=== PATIENT | male | born 1975 | race Caucasian/White ===

== ENCOUNTER 2016-08-07 18:20 | Emergency (ER) | payer SELFPAY ==
[2016-08-07 18:59] LABS: APPEARANCE HAZY (CLEAR); BILIRUBIN NEGATIVE (NEGATIVE); COLOR PINK (YELLOW); GLUCOSE NEGATIVE (NEGATIVE); KETONE NEGATIVE (NEGATIVE); LEUKOCYTE ESTERASE TRACE (NEGATIVE); NITRITE NEGATIVE (NEGATIVE); PROTEIN NEGATIVE (NEGATIVE); SPECIFIC GRAVITY 1.015 (1.005-1.020); UROBILINOGEN NORMAL (NORMAL)
[2016-08-07 19:01] LABS: BACTERIA FEW /hpf (NONE SEEN); EPITHELIAL CELLS RARE /hpf (0-5); RED CELLS - URINE >50 /hpf (0-5); WHITE CELLS - URINE 0-5 /hpf (0-5)
== END 2016-08-07 22:15 | disposition home or self-care (01) ==
LOC: D.ER 18:20
PROVIDERS: Emergency Medicine
DX: N28.89 Other specified disorders of kidney and ureter (principal); F17.200 Nicotine dependence, unspecified, uncomplicated

== ENCOUNTER 2016-10-25 01:57 | Emergency (ER) | payer SELFPAY ==
[2016-10-25 03:47] LABS: BASOPHILS 0.4 % (0.0-2.0); EOSINOPHILS 2.1 % (0-7); HEMATOCRIT 45.1 % (42.0-54.0); HEMOGLOBIN 14.9 g/dL (13.5-17.5); IMMATURE GRANULOCYTES 0.3 % (0-5); LYMPHOCYTES 41.2 % (15-50); MCH 30.7 pg (26.0-34.0); MEAN PLATELET VOLUME 9.5 fL (7.4-10.4); PLATELET COUNT 207 10x3/uL (130-400); RBC 4.85 10x6/uL (4.20-6.10); RDW 12.9 % (11.5-14.5); WBC 6.8 10x3/uL (4.8-10.8)
[2016-10-25 04:02] LABS: ALKALINE PHOSPHATASE 98 U/L (46-116); ALT (SGPT) 22 U/L (10-68); BILIRUBIN - TOTAL 0.28 mg/dL (0.2-1.3); CALC OSMOLALITY 279 mosm/kg (275-300); CALCIUM 9.1 mg/dL (8.5-10.1); CARBON DIOXIDE 27.8 mmol/L (21.0-32.0); CHLORIDE - SERUM 104 mmol/L (98-107); CREATININE - SERUM 0.8 mg/dL (0.6-1.3); GLUCOSE 88 mg/dL (74-106); POTASSIUM - SERUM 4.3 mmol/L (3.5-5.1); PROTEIN - SERUM 7.9 g/dL (6.4-8.2); SODIUM 141 mmol/L (136-145); UREA NITROGEN 12 mg/dL (7-18); eGFR NON AFRICAN AMERICAN > 90 mL/min (90-120)
[2016-10-25 04:03] LABS: C-REACTIVE PROTEIN < 0.2 mg/dL (0.0-0.9)
== END 2016-10-25 05:14 | disposition home or self-care (01) ==
LOC: D.ER 01:57
PROVIDERS: Family Medicine
DX: I80.02 Phlebitis and thrombophlebitis of superficial vessels of left lower extremity (principal)

== ENCOUNTER 2016-12-01 09:35 | Emergency (ER) | payer SELFPAY | END 2016-12-01 11:17 | disposition home or self-care (01) | LOC: D.ER 09:35 | DX: M54.5 Low back pain (principal); S70.01XA Contusion of right hip, initial encounter; X58.XXXA Exposure to other specified factors, initial encounter; Y93.89 Activity, other specified; Y92.89 Other specified places as the place of occurrence of the external cause; F17.200 Nicotine dependence, unspecified, uncomplicated ==

== ENCOUNTER 2017-01-26 01:25 | Emergency (ER) | payer SELFPAY ==
[2017-01-26 01:49] LABS: BASOPHILS 0.2 % (0-2); EOSINOPHILS 1.4 % (0-7); HEMATOCRIT 42.8 % (42.0-54.0); HEMOGLOBIN 14.8 g/dL (13.5-17.5); IMMATURE GRANULOCYTES 0.1 % (0-5); LYMPHOCYTES 26.8 % (15-50); MCH 32.3 pg (26.0-34.0); MCHC 34.6 g/dL (31.0-37.0); MCV 93.4 fL (80.0-100.0); MONOCYTES 9.9 % (2-11); NEUTROPHILS 61.6 % (40-80); PLATELET COUNT 161 10x3/uL (130-400); RBC 4.58 10x6/uL (4.20-6.10); RDW 13.6 % (11.5-14.5); WBC 9.8 10x3/uL (4.8-10.8)
[2017-01-26 01:59] LABS: APPEARANCE HAZY (CLEAR); BILIRUBIN NEGATIVE (NEGATIVE); COLOR YELLOW (YELLOW); GLUCOSE NEGATIVE (NEGATIVE); KETONE NEGATIVE (NEGATIVE); LEUKOCYTE ESTERASE TRACE (NEGATIVE); NITRITE NEGATIVE (NEGATIVE); PROTEIN NEGATIVE (NEGATIVE); UROBILINOGEN NORMAL (NORMAL)
[2017-01-26 02:00] LABS: BACTERIA FEW /hpf (NONE SEEN); CALCIUM OXALATE CRYSTALS 0-5 /hpf (NONE SEEN); EPITHELIAL CELLS 0-5 /hpf (0-5); WHITE CELLS - URINE 0-5 /hpf (0-5)
[2017-01-26 02:02] LABS: ALBUMIN 3.3 g/dL (3.4-5.0); ALKALINE PHOSPHATASE 104 U/L (46-116); ALT (SGPT) 23 U/L (10-68); CALC OSMOLALITY 272 mosm/kg (275-300); CALCIUM 8.2 mg/dL (8.5-10.1); CARBON DIOXIDE 25.9 mmol/L (21.0-32.0); CHLORIDE - SERUM 101 mmol/L (98-107); GLUCOSE 88 mg/dL (74-106); POTASSIUM - SERUM 3.3 mmol/L (3.5-5.1); PROTEIN - SERUM 6.6 g/dL (6.4-8.2); SODIUM 136 mmol/L (136-145); UREA NITROGEN 19 mg/dL (7-18); eGFR NON AFRICAN AMERICAN 88 mL/min (90-120)
== END 2017-01-26 02:30 | disposition home or self-care (01) ==
LOC: D.ER 01:25
PROVIDERS: Emergency Medicine
DX: N23 Unspecified renal colic (principal)

== ENCOUNTER 2017-02-20 06:58 | Emergency (ER) | payer SELFPAY ==
[2017-02-20 08:26] LABS: ALBUMIN 3.2 g/dL (3.4-5.0); ALKALINE PHOSPHATASE 96 U/L (46-116); ALT (SGPT) 31 U/L (10-68); AMYLASE - SERUM 42 U/L (25-115); BILIRUBIN - TOTAL 0.24 mg/dL (0.2-1.3); CALC OSMOLALITY 285 mosm/kg (275-300); CALCIUM 8.7 mg/dL (8.5-10.1); CARBON DIOXIDE 27.1 mmol/L (21.0-32.0); CHLORIDE - SERUM 107 mmol/L (98-107); CREATININE - SERUM 0.9 mg/dL (0.6-1.3); GLUCOSE 112 mg/dL (74-106); LIPASE 108 U/L (73-393); POTASSIUM - SERUM 4.1 mmol/L (3.5-5.1); PROTEIN - SERUM 6.4 g/dL (6.4-8.2); SODIUM 142 mmol/L (136-145); UREA NITROGEN 18 mg/dL (7-18); eGFR NON AFRICAN AMERICAN > 90 mL/min (90-120)
[2017-02-20 08:47] LABS: BASOPHILS 0.3 % (0-2); EOSINOPHILS 1.6 % (0-7); HEMATOCRIT 41.8 % (42.0-54.0); IMMATURE GRANULOCYTES 0.2 % (0-5); LYMPHOCYTES 19.8 % (15-50); MCH 31.7 pg (26.0-34.0); MCHC 33.5 g/dL (31.0-37.0); MCV 94.8 fL (80.0-100.0); MEAN PLATELET VOLUME 9.5 fL (7.4-10.4); NEUTROPHILS 70.1 % (40-80); PLATELET COUNT 161 10x3/uL (130-400); RBC 4.41 10x6/uL (4.20-6.10); WBC 6.2 10x3/uL (4.8-10.8)
[2017-02-20 09:10] LABS: APPEARANCE SLT CLOUDY (CLEAR); BACTERIA FEW /hpf (NONE SEEN); BILIRUBIN NEGATIVE (NEGATIVE); COLOR YELLOW (YELLOW); EPITHELIAL CELLS RARE /hpf (0-5); GLUCOSE NEGATIVE (NEGATIVE); KETONE NEGATIVE (NEGATIVE); LEUKOCYTE ESTERASE NEGATIVE (NEGATIVE); NITRITE NEGATIVE (NEGATIVE); PROTEIN NEGATIVE (NEGATIVE); RED CELLS - URINE >50 /hpf (0-5); SPECIFIC GRAVITY 1.015 (1.005-1.020); UROBILINOGEN NORMAL (NORMAL); WHITE CELLS - URINE RARE /hpf (0-5)
== END 2017-02-20 11:45 | disposition home or self-care (01) ==
LOC: D.ER 06:58
PROVIDERS: Emergency Medicine
DX: K59.00 Constipation, unspecified (principal); R31.9 Hematuria, unspecified; F17.200 Nicotine dependence, unspecified, uncomplicated

== ENCOUNTER 2017-02-28 07:29 | Emergency (ER) | payer MEDICAID | END 2017-02-28 08:22 | disposition home or self-care (01) | LOC: D.ER 07:29 | DX: R10.9 Unspecified abdominal pain (principal); R60.0 Localized edema ==

== ENCOUNTER 2017-03-18 10:34 | Emergency (ER) | payer MEDICAID | END 2017-03-18 11:25 | disposition home or self-care (01) | LOC: D.ER 10:34 | DX: R10.9 Unspecified abdominal pain (principal); K40.90 Unilateral inguinal hernia, without obstruction or gangrene, not specified as recurrent; F17.200 Nicotine dependence, unspecified, uncomplicated ==

== ENCOUNTER 2017-03-30 04:45 | Emergency (ER) | payer MEDICAID | END 2017-03-30 05:30 | disposition home or self-care (01) | LOC: D.ER 04:45 | DX: K40.90 Unilateral inguinal hernia, without obstruction or gangrene, not specified as recurrent (principal); F17.200 Nicotine dependence, unspecified, uncomplicated; R10.30 Lower abdominal pain, unspecified ==

== ENCOUNTER 2017-04-03 04:27 | Emergency (ER) | payer MEDICAID ==
[2017-04-03 05:37] LABS: BASOPHILS 0.4 % (0-2); EOSINOPHILS 2.4 % (0-7); HEMATOCRIT 35.2 % (42.0-54.0); HEMOGLOBIN 11.7 g/dL (13.5-17.5); IMMATURE GRANULOCYTES 0.2 % (0-5); LYMPHOCYTES 37.9 % (15-50); MCH 31.2 pg (26.0-34.0); MCHC 33.2 g/dL (31.0-37.0); MCV 93.9 fL (80.0-100.0); MEAN PLATELET VOLUME 9.1 fL (7.4-10.4); MONOCYTES 8.3 % (2-11); NEUTROPHILS 50.8 % (40-80); PLATELET COUNT 143 10x3/uL (130-400); RBC 3.75 10x6/uL (4.20-6.10); RDW 12.6 % (11.5-14.5); WBC 5.5 10x3/uL (4.8-10.8)
[2017-04-03 05:49] LABS: APTT 28.1 SECONDS (22.8-39.4); INR 0.98 (0.85-1.17); PROTIME 12.8 SECONDS (11.6-15.0)
[2017-04-03 05:56] LABS: CALC OSMOLALITY 279 mosm/kg (275-300); CALCIUM 8.6 mg/dL (8.5-10.1); CARBON DIOXIDE 24.5 mmol/L (21.0-32.0); CHLORIDE - SERUM 105 mmol/L (98-107); CREATININE - SERUM 0.7 mg/dL (0.6-1.3); GLUCOSE 96 mg/dL (74-106); POTASSIUM - SERUM 3.8 mmol/L (3.5-5.1); SODIUM 140 mmol/L (136-145); UREA NITROGEN 15 mg/dL (7-18); eGFR NON AFRICAN AMERICAN > 90 mL/min (90-120)
== END 2017-04-03 08:06 | disposition home or self-care (01) ==
LOC: D.ER 04:27
PROVIDERS: Emergency Medicine
DX: I82.402 Acute embolism and thrombosis of unspecified deep veins of left lower extremity (principal); F17.200 Nicotine dependence, unspecified, uncomplicated

== ENCOUNTER 2017-04-29 14:21 | Emergency (ER) | payer MEDICAID | END 2017-04-29 16:50 | disposition home or self-care (01) | LOC: D.ER 14:21 | DX: K40.90 Unilateral inguinal hernia, without obstruction or gangrene, not specified as recurrent (principal); F17.200 Nicotine dependence, unspecified, uncomplicated ==

== ENCOUNTER 2017-05-10 07:19 | Emergency (ER) | payer MEDICAID | END 2017-05-10 10:00 | disposition home or self-care (01) | LOC: D.ER 07:19 | DX: S20.219A Contusion of unspecified front wall of thorax, initial encounter (principal); W10.9XXA Fall (on) (from) unspecified stairs and steps, initial encounter; Y93.89 Activity, other specified; Y92.029 Unspecified place in mobile home as the place of occurrence of the external cause; R07.89 Other chest pain; F17.200 Nicotine dependence, unspecified, uncomplicated ==

== ENCOUNTER 2017-05-13 18:27 | Emergency (ER) | payer MEDICAID ==
[2017-05-13 18:56] LABS: BASOPHILS 0.1 % (0-2); EOSINOPHILS 3.3 % (0-7); HEMATOCRIT 39.2 % (42.0-54.0); HEMOGLOBIN 13.2 g/dL (13.5-17.5); IMMATURE GRANULOCYTES 0.1 % (0-5); LYMPHOCYTES 22.5 % (15-50); MCH 31.1 pg (26.0-34.0); MCHC 33.7 g/dL (31.0-37.0); MCV 92.2 fL (80.0-100.0); MONOCYTES 8.6 % (2-11); NEUTROPHILS 65.4 % (40-80); PLATELET COUNT 151 10x3/uL (130-400); RBC 4.25 10x6/uL (4.20-6.10); RDW 12.9 % (11.5-14.5); WBC 7.2 10x3/uL (4.8-10.8)
[2017-05-13 19:19] LABS: AMYLASE - SERUM 25 U/L (25-115); CALC OSMOLALITY 279 mosm/kg (275-300); CALCIUM 8.8 mg/dL (8.5-10.1); CARBON DIOXIDE 23.4 mmol/L (21.0-32.0); CHLORIDE - SERUM 107 mmol/L (98-107); CREATININE - SERUM 0.9 mg/dL (0.6-1.3); GLUCOSE 87 mg/dL (74-106); LIPASE 86 U/L (73-393); POTASSIUM - SERUM 3.4 mmol/L (3.5-5.1); SODIUM 142 mmol/L (136-145); UREA NITROGEN 8 mg/dL (7-18); eGFR NON AFRICAN AMERICAN > 90 mL/min (90-120)
== END 2017-05-13 20:26 | disposition home or self-care (01) ==
LOC: D.ER 18:27
PROVIDERS: Family Medicine; Nurse Practitioner Acute Care
DX: K21.9 Gastro-esophageal reflux disease without esophagitis (principal); D68.51 Activated protein C resistance; F17.200 Nicotine dependence, unspecified, uncomplicated

== ENCOUNTER 2017-05-13 23:25 | Emergency (ER) | payer MEDICAID ==
[2017-05-14 00:27] LABS: BASOPHILS 0.3 % (0-2); EOSINOPHILS 2.9 % (0-7); HEMATOCRIT 40.4 % (42.0-54.0); HEMOGLOBIN 13.5 g/dL (13.5-17.5); IMMATURE GRANULOCYTES 0.2 % (0-5); MCHC 33.4 g/dL (31.0-37.0); MCV 92.9 fL (80.0-100.0); MEAN PLATELET VOLUME 9.1 fL (7.4-10.4); MONOCYTES 7.6 % (2-11); PLATELET COUNT 142 10x3/uL (130-400); RBC 4.35 10x6/uL (4.20-6.10); RDW 12.7 % (11.5-14.5); WBC 6.3 10x3/uL (4.8-10.8)
== END 2017-05-14 01:10 | disposition home or self-care (01) ==
LOC: D.ER 23:25
PROVIDERS: Physician Assistant Medical
DX: K59.00 Constipation, unspecified (principal); F17.200 Nicotine dependence, unspecified, uncomplicated

== ENCOUNTER 2017-07-04 21:07 | Emergency (ER) | payer MEDICAID ==
[2017-07-04 22:31] LABS: BASOPHILS 0.7 % (0-2); HEMATOCRIT 42.2 % (42.0-54.0); HEMOGLOBIN 14.1 g/dL (13.5-17.5); IMMATURE GRANULOCYTES 0.1 % (0-5); LYMPHOCYTES 29.5 % (15-50); MCH 31.2 pg (26.0-34.0); MCHC 33.4 g/dL (31.0-37.0); MCV 93.4 fL (80.0-100.0); MONOCYTES 8.9 % (2-11); NEUTROPHILS 58.8 % (40-80); RBC 4.52 10x6/uL (4.20-6.10); WBC 6.9 10x3/uL (4.8-10.8)
[2017-07-04 22:41] LABS: PLATELET COUNT 204 10x3/uL (130-400)
[2017-07-04 22:46] LABS: APPEARANCE HAZY (CLEAR); BILIRUBIN NEGATIVE (NEGATIVE); COLOR DK YELLOW (YELLOW); GLUCOSE NEGATIVE (NEGATIVE); KETONE NEGATIVE (NEGATIVE); NITRITE NEGATIVE (NEGATIVE); PROTEIN TRACE mg/dL (NEGATIVE); SPECIFIC GRAVITY 1.025 (1.005-1.020); UROBILINOGEN NORMAL (NORMAL)
[2017-07-04 22:48] LABS: ALBUMIN 3.8 g/dL (3.4-5.0); ALKALINE PHOSPHATASE 127 U/L (46-116); ALT (SGPT) 23 U/L (10-68); BILIRUBIN - TOTAL 0.19 mg/dL (0.2-1.3); CALC OSMOLALITY 276 mosm/kg (275-300); CALCIUM 9.1 mg/dL (8.5-10.1); CARBON DIOXIDE 26.6 mmol/L (21.0-32.0); CHLORIDE - SERUM 102 mmol/L (98-107); CREATININE - SERUM 0.8 mg/dL (0.6-1.3); POTASSIUM - SERUM 3.6 mmol/L (3.5-5.1); PROTEIN - SERUM 7.8 g/dL (6.4-8.2); SODIUM 139 mmol/L (136-145); UREA NITROGEN 15 mg/dL (7-18); eGFR NON AFRICAN AMERICAN > 90 mL/min (90-120)
[2017-07-04 22:49] LABS: BACTERIA FEW /hpf (NONE SEEN); RED CELLS - URINE >50 /hpf (0-5); WHITE CELLS - URINE 0-5 /hpf (0-5)
[2017-07-04 22:50] LABS: GLUCOSE 56 mg/dL (74-106)
== END 2017-07-05 04:57 | disposition home or self-care (01) ==
LOC: D.ER 21:07
PROVIDERS: Family Medicine
DX: R10.9 Unspecified abdominal pain (principal); N23 Unspecified renal colic; N39.0 Urinary tract infection, site not specified; F17.200 Nicotine dependence, unspecified, uncomplicated

== ENCOUNTER 2017-08-06 03:14 | Emergency (ER) | payer MEDICAID ==
[2017-08-06 04:53] LABS: APPEARANCE CLEAR (CLEAR); BILIRUBIN NEGATIVE (NEGATIVE); COLOR YELLOW (YELLOW); GLUCOSE NEGATIVE (NEGATIVE); KETONE NEGATIVE (NEGATIVE); NITRITE NEGATIVE (NEGATIVE); PROTEIN NEGATIVE (NEGATIVE); SPECIFIC GRAVITY 1.015 (1.005-1.020); UROBILINOGEN NORMAL (NORMAL)
== END 2017-08-06 04:58 | disposition home or self-care (01) ==
LOC: D.ER 03:14
PROVIDERS: Emergency Medicine
DX: K40.90 Unilateral inguinal hernia, without obstruction or gangrene, not specified as recurrent (principal); F17.200 Nicotine dependence, unspecified, uncomplicated; D68.51 Activated protein C resistance

== ENCOUNTER 2017-08-08 14:51 | Emergency (ER) | payer MEDICAID ==
[2017-08-08 19:45] LABS: BASOPHILS 0.1 % (0-2); EOSINOPHILS 0.7 % (0-7); HEMATOCRIT 43.3 % (42.0-54.0); HEMOGLOBIN 14.8 g/dL (13.5-17.5); IMMATURE GRANULOCYTES 0.2 % (0-5); MCH 30.6 pg (26.0-34.0); MCHC 34.2 g/dL (31.0-37.0); MCV 89.5 fL (80.0-100.0); MEAN PLATELET VOLUME 8.7 fL (7.4-10.4); MONOCYTES 7.6 % (2-11); NEUTROPHILS 66.4 % (40-80); PLATELET COUNT 233 10x3/uL (130-400); RBC 4.84 10x6/uL (4.20-6.10); WBC 8.8 10x3/uL (4.8-10.8)
[2017-08-08 19:55] LABS: PROTIME 12.8 SECONDS (11.6-15.0)
[2017-08-08 20:04] LABS: ALBUMIN 3.9 g/dL (3.4-5.0); ALKALINE PHOSPHATASE 121 U/L (46-116); ALT (SGPT) 19 U/L (10-68); BILIRUBIN - TOTAL 0.66 mg/dL (0.2-1.3); CALC OSMOLALITY 277 mosm/kg (275-300); CALCIUM 9.7 mg/dL (8.5-10.1); CARBON DIOXIDE 26.2 mmol/L (21.0-32.0); CHLORIDE - SERUM 102 mmol/L (98-107); CREATININE - SERUM 0.9 mg/dL (0.6-1.3); POTASSIUM - SERUM 3.8 mmol/L (3.5-5.1); PROTEIN - SERUM 8.1 g/dL (6.4-8.2); SODIUM 140 mmol/L (136-145); UREA NITROGEN 9 mg/dL (7-18); eGFR NON AFRICAN AMERICAN > 90 mL/min (90-120)
[2017-08-08 20:06] LABS: GLUCOSE 97 mg/dL (74-106)
== END 2017-08-08 23:32 | disposition home or self-care (01) ==
LOC: D.ER 14:51
PROVIDERS: Family Medicine
DX: R10.9 Unspecified abdominal pain (principal); R10.32 Left lower quadrant pain; K40.90 Unilateral inguinal hernia, without obstruction or gangrene, not specified as recurrent; F17.200 Nicotine dependence, unspecified, uncomplicated

== ENCOUNTER 2017-08-12 11:12 | Emergency (ER) | payer MEDICAID ==
[2017-08-12 12:13] LABS: APPEARANCE CLOUDY (CLEAR); BILIRUBIN NEGATIVE (NEGATIVE); COLOR AMBER (YELLOW); GLUCOSE NEGATIVE (NEGATIVE); KETONE NEGATIVE (NEGATIVE); NITRITE POSITIVE (NEGATIVE); PROTEIN 3+ mg/dL (NEGATIVE)
[2017-08-12 12:16] LABS: BACTERIA FEW /hpf (NONE SEEN); EPITHELIAL CELLS 0-5 /hpf (0-5); RED CELLS - URINE >50 /hpf (0-5)
[2017-08-12 12:19] LABS: UDS - AMPHET POSITIVE QUAL (NEGATIVE); UDS - BARB NEGATIVE QUAL (NEGATIVE); UDS - BENZO NEGATIVE QUAL (NEGATIVE); UDS - COCAINE NEGATIVE QUAL (NEGATIVE); UDS - OPIATE POSITIVE QUAL (NEGATIVE); UDS - PCP NEGATIVE QUAL (NEGATIVE); UDS - THC POSITIVE QUAL (NEGATIVE)
[2017-08-12 12:28] LABS: BASOPHILS 0.3 % (0-2); EOSINOPHILS 0.9 % (0-7); HEMATOCRIT 40.6 % (42.0-54.0); HEMOGLOBIN 13.8 g/dL (13.5-17.5); IMMATURE GRANULOCYTES 0.1 % (0-5); LYMPHOCYTES 26.1 % (15-50); MCH 30.5 pg (26.0-34.0); MCV 89.6 fL (80.0-100.0); MEAN PLATELET VOLUME 8.8 fL (7.4-10.4); MONOCYTES 8.7 % (2-11); NEUTROPHILS 63.9 % (40-80); PLATELET COUNT 220 10x3/uL (130-400); RBC 4.53 10x6/uL (4.20-6.10); WBC 7.5 10x3/uL (4.8-10.8)
[2017-08-12 12:36] LABS: INR 1.04 (0.85-1.17); PROTIME 13.2 SECONDS (11.6-15.0)
[2017-08-12 12:38] LABS: ALBUMIN 3.5 g/dL (3.4-5.0); ALKALINE PHOSPHATASE 111 U/L (46-116); ALT (SGPT) 16 U/L (10-68); BILIRUBIN - TOTAL 0.32 mg/dL (0.2-1.3); CALC OSMOLALITY 277 mosm/kg (275-300); CALCIUM 9.2 mg/dL (8.5-10.1); CARBON DIOXIDE 25.4 mmol/L (21.0-32.0); CHLORIDE - SERUM 104 mmol/L (98-107); CREATININE - SERUM 0.8 mg/dL (0.6-1.3); GLUCOSE 92 mg/dL (74-106); PROTEIN - SERUM 7.6 g/dL (6.4-8.2); SODIUM 140 mmol/L (136-145); UREA NITROGEN 10 mg/dL (7-18); eGFR NON AFRICAN AMERICAN > 90 mL/min (90-120)
== END 2017-08-12 14:03 | disposition home or self-care (01) ==
LOC: D.ER 11:12
PROVIDERS: Emergency Medicine; Physician Assistant Medical
DX: N39.0 Urinary tract infection, site not specified (principal); F17.200 Nicotine dependence, unspecified, uncomplicated

== ENCOUNTER 2017-09-01 11:33 | Emergency (ER) | payer MEDICAID ==
[2017-09-01 12:06] LABS: APPEARANCE SLT CLOUDY (CLEAR); COLOR DK YELLOW (YELLOW); GLUCOSE NEGATIVE (NEGATIVE); KETONE NEGATIVE (NEGATIVE); NITRITE NEGATIVE (NEGATIVE); PROTEIN NEGATIVE (NEGATIVE); SPECIFIC GRAVITY 1.015 (1.005-1.020); UROBILINOGEN NORMAL (NORMAL)
[2017-09-01 12:07] LABS: BILIRUBIN NEGATIVE (NEGATIVE)
[2017-09-01 12:08] LABS: AMORPHOUS SEDIMENT <1+ /lpf (NONE SEEN); BACTERIA MODERATE /hpf (NONE SEEN); CALCIUM OXALATE CRYSTALS 0-5 /hpf (NONE SEEN); EPITHELIAL CELLS 0-5 /hpf (0-5); GRANULAR CAST OCC /lpf (NONE SEEN); MUCUS <1+ /lpf (NONE SEEN); RED CELLS - URINE >50 /hpf (0-5); WHITE CELLS - URINE 0-5 /hpf (0-5)
[2017-09-01 12:36] LABS: BASOPHILS 0.1 % (0-2); EOSINOPHILS 0.4 % (0-7); HEMATOCRIT 43.5 % (42.0-54.0); HEMOGLOBIN 14.8 g/dL (13.5-17.5); IMMATURE GRANULOCYTES 0.3 % (0-5); LYMPHOCYTES 28.9 % (15-50); MCH 30.7 pg (26.0-34.0); MCV 90.2 fL (80.0-100.0); MEAN PLATELET VOLUME 8.7 fL (7.4-10.4); NEUTROPHILS 63.3 % (40-80); RBC 4.82 10x6/uL (4.20-6.10); RDW 13.1 % (11.5-14.5); WBC 7.8 10x3/uL (4.8-10.8)
[2017-09-01 12:37] LABS: PLATELET COUNT 156 10x3/uL (130-400)
[2017-09-01 12:50] LABS: ALBUMIN 3.8 g/dL (3.4-5.0); ALKALINE PHOSPHATASE 97 U/L (46-116); ALT (SGPT) 16 U/L (10-68); AMYLASE - SERUM 43 U/L (25-115); BILIRUBIN - TOTAL 0.42 mg/dL (0.2-1.3); CALC OSMOLALITY 280 mosm/kg (275-300); CALCIUM 9.3 mg/dL (8.5-10.1); CARBON DIOXIDE 28.6 mmol/L (21.0-32.0); CHLORIDE - SERUM 104 mmol/L (98-107); GLUCOSE 107 mg/dL (74-106); LIPASE 85 U/L (73-393); POTASSIUM - SERUM 3.8 mmol/L (3.5-5.1); PROTEIN - SERUM 7.4 g/dL (6.4-8.2); SODIUM 141 mmol/L (136-145); UREA NITROGEN 12 mg/dL (7-18); eGFR NON AFRICAN AMERICAN 88 mL/min (90-120)
== END 2017-09-01 16:47 | disposition home or self-care (01) ==
LOC: D.ER 11:33
PROVIDERS: Family Medicine
DX: R10.9 Unspecified abdominal pain (principal); R31.9 Hematuria, unspecified; F17.200 Nicotine dependence, unspecified, uncomplicated

== ENCOUNTER 2017-10-22 18:40 | Emergency (ER) | payer MEDICAID | END 2017-10-22 20:37 | disposition home or self-care (01) | LOC: D.ER 18:40 | DX: M79.605 Pain in left leg (principal); I82.402 Acute embolism and thrombosis of unspecified deep veins of left lower extremity ==

== ENCOUNTER 2017-11-14 10:45 | Emergency (ER) | payer MEDICAID | END 2017-11-14 12:06 | disposition home or self-care (01) | LOC: D.ER 10:45 | DX: K02.9 Dental caries, unspecified (principal); K08.89 Other specified disorders of teeth and supporting structures; K04.7 Periapical abscess without sinus; R22.9 Localized swelling, mass and lump, unspecified; F17.200 Nicotine dependence, unspecified, uncomplicated ==

== ENCOUNTER 2017-11-22 06:24 | Emergency (ER) | payer MEDICAID | END 2017-11-22 08:27 | disposition home or self-care (01) | LOC: D.ER 06:24 | DX: S83.92XA Sprain of unspecified site of left knee, initial encounter (principal); W19.XXXA Unspecified fall, initial encounter; Y93.89 Activity, other specified; Y92.89 Other specified places as the place of occurrence of the external cause; F17.200 Nicotine dependence, unspecified, uncomplicated ==

== ENCOUNTER 2018-01-04 06:42 | Emergency (ER) | payer SELFPAY ==
[2018-01-04 07:03] LABS: BASOPHILS 0.5 % (0-2); EOSINOPHILS 4.5 % (0-7); HEMATOCRIT 39.3 % (42.0-54.0); HEMOGLOBIN 13.3 g/dL (13.5-17.5); IMMATURE GRANULOCYTES 0.2 % (0-5); LYMPHOCYTES 35.9 % (15-50); MCH 31.3 pg (26.0-34.0); MCHC 33.8 g/dL (31.0-37.0); MCV 92.5 fL (80.0-100.0); MEAN PLATELET VOLUME 8.9 fL (7.4-10.4); MONOCYTES 7.7 % (2-11); NEUTROPHILS 51.2 % (40-80); PLATELET COUNT 163 10x3/uL (130-400); RBC 4.25 10x6/uL (4.20-6.10); RDW 12.7 % (11.5-14.5); WBC 5.6 10x3/uL (4.8-10.8)
[2018-01-04 07:28] LABS: ALBUMIN 3.4 g/dL (3.4-5.0); ALKALINE PHOSPHATASE 96 U/L (46-116); ALT (SGPT) 29 U/L (10-68); CALC OSMOLALITY 284 mosm/kg (275-300); CALCIUM 8.3 mg/dL (8.5-10.1); CHLORIDE - SERUM 106 mmol/L (98-107); CREATININE - SERUM 0.8 mg/dL (0.6-1.3); GLUCOSE 94 mg/dL (74-106); POTASSIUM - SERUM 3.7 mmol/L (3.5-5.1); SODIUM 142 mmol/L (136-145); UREA NITROGEN 19 mg/dL (7-18); eGFR NON AFRICAN AMERICAN > 90 mL/min (90-120)
[2018-01-04 07:34] LABS: C-REACTIVE PROTEIN < 0.2 mg/dL (0.0-0.9)
== END 2018-01-04 08:52 | disposition home or self-care (01) ==
LOC: D.ER 06:42
PROVIDERS: Family Medicine
DX: L03.116 Cellulitis of left lower limb (principal)

== ENCOUNTER 2018-03-12 08:28 | Emergency (ER) | payer MEDICAID ==
[~2018-03-12] VITALS: Ht 182.9 cm; Wt 79.4 kg
[2018-03-12 08:37] VITALS: Ht 182.9 cm; Wt 79.4 kg
[2018-03-12] MEDS ORDERED: CLEOCIN HCL300 MG PO (09:44)
[2018-03-12] MEDS ORDERED: NORCO 7.5/325 T1 TA1 PO (09:44)
[2018-03-12 09:59] VITALS: BP 122/078
== END 2018-03-12 10:07 | disposition home or self-care (01) ==
LOC: D.ER 08:28
DX: K02.9 Dental caries, unspecified (principal); K04.7 Periapical abscess without sinus; F17.200 Nicotine dependence, unspecified, uncomplicated

== ENCOUNTER 2018-05-13 11:24 | Emergency (ER) | payer MEDICAID ==
[~2018-05-13] VITALS: Ht 182.9 cm; Wt 79.5 kg
[~2018-05-13 11:24] MED LIST: CLEOCIN HCL300 MG PO; NORCO 7.5/325 T1 TA1 PO
[2018-05-13 11:38] VITALS: Ht 182.9 cm; Wt 79.5 kg
[2018-05-13] MEDS ORDERED: NORCO 7.5/325 T1 TA1 PO (12:15)
[2018-05-13 12:23] VITALS: BP 140/84
== END 2018-05-13 12:24 | disposition home or self-care (01) ==
LOC: D.ER 11:24
DX: S02.5XXA Fracture of tooth (traumatic), initial encounter for closed fracture (principal); X58.XXXA Exposure to other specified factors, initial encounter; Y93.89 Activity, other specified; Y92.019 Unspecified place in single-family (private) house as the place of occurrence of the external cause; K02.9 Dental caries, unspecified

== ENCOUNTER 2018-09-25 20:10 | Emergency (ER) | payer SELFPAY ==
[~2018-09-25] VITALS: Ht 182.9 cm; Wt 81.8 kg
[2018-09-25 20:16] VITALS: Ht 182.9 cm; Wt 81.8 kg
[2018-09-25 21:09] LABS: BASOPHILS 0.6 % (0-2); EOSINOPHILS 1.9 % (0-7); HEMATOCRIT 45.3 % (42.0-54.0); HEMOGLOBIN 15.6 g/dL (13.5-17.5); IMMATURE GRANULOCYTES 0.6 % (0-5); LYMPHOCYTES 33.5 % (15-50); MCH 31.3 pg (26.0-34.0); MCHC 34.4 g/dL (31.0-37.0); MEAN PLATELET VOLUME 9.4 fL (7.4-10.4); MONOCYTES 3.2 % (2-11); NEUTROPHILS 60.2 % (40-80); RBC 4.98 10x6/uL (4.20-6.10); RDW 12.2 % (11.5-14.5); WBC 8.2 10x3/uL (4.8-10.8)
[2018-09-25 21:12] LABS: PLATELET COUNT 200 10x3/uL (130-400)
[2018-09-25 21:47] LABS: ALBUMIN 3.9 g/dL (3.4-5.0); ALKALINE PHOSPHATASE 128 U/L (46-116); ALT (SGPT) 23 U/L (10-68); AMYLASE - SERUM 41 U/L (25-115); BILIRUBIN - TOTAL 0.25 mg/dL (0.2-1.3); CALC OSMOLALITY 283 mosm/kg (275-300); CALCIUM 8.8 mg/dL (8.5-10.1); CARBON DIOXIDE 23.6 mmol/L (21.0-32.0); CHLORIDE - SERUM 104 mmol/L (98-107); CREATININE - SERUM 0.8 mg/dL (0.6-1.3); LIPASE 376 U/L (73-393); POTASSIUM - SERUM 3.7 mmol/L (3.5-5.1); PROTEIN - SERUM 8.2 g/dL (6.4-8.2); SODIUM 143 mmol/L (136-145); UREA NITROGEN 14 mg/dL (7-18); eGFR NON AFRICAN AMERICAN > 90 mL/min (90-120)
[2018-09-25 21:48] LABS: GLUCOSE 67 mg/dL (74-106)
[2018-09-25 22:14] LABS: APPEARANCE CLEAR (CLEAR); BILIRUBIN NEGATIVE (NEGATIVE); COLOR YELLOW (YELLOW); GLUCOSE NEGATIVE (NEGATIVE); KETONE NEGATIVE (NEGATIVE); NITRITE NEGATIVE (NEGATIVE); PROTEIN NEGATIVE (NEGATIVE); SPECIFIC GRAVITY 1.015 (1.005-1.020); UROBILINOGEN NORMAL (NORMAL)
[2018-09-25 22:21] LABS: UDS - AMPHET POSITIVE QUAL (NEGATIVE); UDS - BARB NEGATIVE QUAL (NEGATIVE); UDS - BENZO NEGATIVE QUAL (NEGATIVE); UDS - COCAINE NEGATIVE QUAL (NEGATIVE); UDS - OPIATE POSITIVE QUAL (NEGATIVE); UDS - PCP NEGATIVE QUAL (NEGATIVE); UDS - THC POSITIVE QUAL (NEGATIVE)
[2018-09-25 23:21] VITALS: BP 171/108
== END 2018-09-25 23:34 | disposition home or self-care (01) ==
LOC: D.ER 20:10
PROVIDERS: Family Medicine
DX: R10.11 Right upper quadrant pain (principal); F10.129 Alcohol abuse with intoxication, unspecified; F19.10 Other psychoactive substance abuse, uncomplicated

== ENCOUNTER 2019-06-28 21:59 | Inpatient (IN) | payer MEDICAID ==
[~2019-06-28] VITALS: Ht 182.9 cm; Wt 80.0 kg
--- NOTE | 2019-06-28 22:30 | NUR ---
ULTRASOUND AT PT'S BEDSIDE TO DO STUDY.
[2019-06-28 22:31] LABS: BASOPHILS 0.2 % (0-2); EOSINOPHILS 0.9 % (0-7); HEMATOCRIT 33.2 % (42.0-54.0); HEMOGLOBIN 10.7 g/dL (13.5-17.5); IMMATURE GRANULOCYTES 0.2 % (0-5); LYMPHOCYTES 25.7 % (15-50); MCH 30.1 pg (26.0-34.0); MCHC 32.2 g/dL (31.0-37.0); MCV 93.3 fL (80.0-100.0); MEAN PLATELET VOLUME 8.4 fL (7.4-10.4); MONOCYTES 9.9 % (2-11); NEUTROPHILS 63.1 % (40-80); PLATELET COUNT 218 10x3/uL (130-400); RBC 3.56 10x6/uL (4.20-6.10); RDW 13.2 % (11.5-14.5); WBC 5.5 10x3/uL (4.8-10.8)
[2019-06-28 22:42] LABS: CALC OSMOLALITY 276 mosm/kg (275-300); CALCIUM 8.7 mg/dL (8.5-10.1); CARBON DIOXIDE 30.4 mmol/L (21.0-32.0); CHLORIDE - SERUM 103 mmol/L (98-107); CREATININE - SERUM 0.8 mg/dL (0.6-1.3); POTASSIUM - SERUM 3.7 mmol/L (3.5-5.1); SODIUM 139 mmol/L (136-145); UREA NITROGEN 10 mg/dL (7-18); eGFR NON AFRICAN AMERICAN > 90 mL/min (90-120)
[2019-06-28 22:49] LABS: ALBUMIN 3.6 g/dL (3.4-5.0); ALKALINE PHOSPHATASE 84 U/L (46-116); ALT (SGPT) 22 U/L (10-68); BILIRUBIN - TOTAL 0.42 mg/dL (0.2-1.3); PROTEIN - SERUM 7.2 g/dL (6.4-8.2)
[2019-06-28 22:56] LABS: APTT 25.5 SECONDS (22.8-39.4); GLUCOSE 102 mg/dL (74-106); INR 1.05 (0.85-1.17); PROTIME 13.2 SECONDS (11.6-15.0)
[2019-06-28 22:57] LABS: D-DIMER-QUANTITATIVE 3.36 ug/mLFEU (0.20-0.54)
--- NOTE | 2019-06-28 23:26 | NUR ---
PT GIVEN WATER TO DRINK, DENIES ANY FURTHER NEEDS AT THIS TIME, CALL LIGHT WITHIN REACH. WILL CONTINUE TO MONITOR.
[2019-06-29] VITALS (7 sets, daily range): BP systolic 142–159; BP diastolic 95–103; Ht 182.9 cm; Wt 80.0 kg
--- NOTE | 2019-06-29 02:54 | NUR ---
ASSESSED WHEN PATIENT ARRIVED FROM THE ER. HE IS ALERT AND ORIENTED, ABLE TO VERBALIZE NEEDS AND GET UP AD HYACINTH TO THE BATHROOM. HE WAS GIVEN A SANDWICH TRAY AND DRINKS AFTER ADMIT PAPERWORK WAS DONE. HIS LEFT LOWER LEG IS RED AND SWOLLEN. THE FOOT OF THE BED HAS BEEN ELEVATED TO KEEP IT UP. NO MEDS HAVE BEEN DUE AT THIS TIME AND HE IS RESTING WELL.
[2019-06-29 08:43] LABS: BASOPHILS 0.2 % (0-2); EOSINOPHILS 1.4 % (0-7); HEMATOCRIT 33.2 % (42.0-54.0); HEMOGLOBIN 10.8 g/dL (13.5-17.5); IMMATURE GRANULOCYTES 0.2 % (0-5); LYMPHOCYTES 30.8 % (15-50); MCH 30.1 pg (26.0-34.0); MCHC 32.5 g/dL (31.0-37.0); MCV 92.5 fL (80.0-100.0); MEAN PLATELET VOLUME 8.7 fL (7.4-10.4); MONOCYTES 10.6 % (2-11); NEUTROPHILS 56.8 % (40-80); PLATELET COUNT 208 10x3/uL (130-400); RBC 3.59 10x6/uL (4.20-6.10); RDW 13.2 % (11.5-14.5); WBC 4.4 10x3/uL (4.8-10.8)
[2019-06-29 09:04] LABS: ALBUMIN 3.3 g/dL (3.4-5.0); ALKALINE PHOSPHATASE 87 U/L (46-116); ALT (SGPT) 23 U/L (10-68); BILIRUBIN - TOTAL 0.44 mg/dL (0.2-1.3); CALC OSMOLALITY 278 mosm/kg (275-300); CALCIUM 8.8 mg/dL (8.5-10.1); CARBON DIOXIDE 28.8 mmol/L (21.0-32.0); CHLORIDE - SERUM 103 mmol/L (98-107); CREATININE - SERUM 0.8 mg/dL (0.6-1.3); GLUCOSE 141 mg/dL (74-106); POTASSIUM - SERUM 3.5 mmol/L (3.5-5.1); PROTEIN - SERUM 6.9 g/dL (6.4-8.2); SODIUM 139 mmol/L (136-145); UREA NITROGEN 9 mg/dL (7-18); eGFR NON AFRICAN AMERICAN > 90 mL/min (90-120)
--- NOTE | 2019-06-29 09:54 | NUR ---
PT ALERT X 4. BREATH SOUNDS DIMINISHED TO RLL. TELEMETRY IN PLACE. IV TO RIGHT AC, SALINE LOCKED. +2 EDEMA TO LEFT LEG, PULSE PALPABLE. PT REPORTING PAIN OF 7/10, MEDICATED PER ORDERS, WILL MONITOR. PT JUST FINISHED UP WITH SHOWER. BED LOW, CALL LIGHT IN REACH. NO OTHER NEEDS AT THIS TIME.
--- NOTE | 2019-06-29 15:51 | MORECARE ---
CASE MANAGEMENT DISCHARGE SUMMARY PATIENT: GRACE DIAS UNIT: [id number] ADM DATE: 06/29/19 AGE: 43 : 77 SEX: M ROOM/BED: D.1208 AUTHOR: GRETEL ROJAS PHYSICIAN: REFERRING PHYSICIAN: THU ADAME MD DATE OF SERVICE: 06/29/19 Discharge Plan Patient Name: GRACE DIAS [facility] [facility] 1975 Planned Disposition: Anticipated Discharge Date: Discharge Date: Expected LOS: Initial Reviewer: [email or web address] Initial Review Date: 06/29/2019 Generated: 06/29/19 4:50 pm Patient Name: GRACE DIAS Page [id number] at 1551 All edits/amendments must be made on the electronic document DICTATION DATE: 06/29/191549 HEALTH EDUCATION ASSISTANT: JAYE 06/29/191549 RPT#: [id number] DC DATE: STATUS: ADM IN [facility] [address] [place] [address] END OF REPORT
--- NOTE | 2019-06-29 15:58 | MORECARE ---
CASE MANAGEMENT DISCHARGE SUMMARY PATIENT: GRACE DIAS UNIT: [id number] ADM DATE: 06/29/19 AGE: 43 : 77 SEX: M ROOM/BED: D.1208 AUTHOR: GRETEL ROJAS PHYSICIAN: REFERRING PHYSICIAN: THU ADAME MD DATE OF SERVICE: 06/29/19 Discharge Plan Patient Name: GRACE DIAS [facility] : 1975 Planned Disposition: Anticipated Discharge Date: Discharge Date: Expected LOS: Initial Reviewer: [email or web address] Initial Review Date: 06/29/2019 Generated: 06/29/19 4:57 pm Comments DCP- Discharge Planning Updated by [id number]: Radha Mondragon on 06/29/19 2:[address] Patient Name: GRACE DIAS Admission Status: ER Accout number: [id number] Admission Date: 06-29-2019 : 1975 Admission Diagnosis: Attending: THU TITUS Current LOS: 1 Anticipated DC Date: Planned Disposition: Primary Insurance: UNINSURED DISCOUNT PLAN Discharge Planning Comments: CM CALLED [employer] AND LEFT A MSG TO FOLLOW UP WITH THIS PATIENT TO HELP WITH INSURANCE APPLICATION. NICK FROM [employer] MET WITH PATIENT TODAY. COUMADIN IS AVAILABLE AT [facility] FOR 4 DOLLARS THROUGH [facility]. I WILL MEET WITH PATIENT AND GIVE HIM A GOOD RX PRESCRIPTION DRUG CARD. CM WILL FOLLOW AND ASSIST NEEDED. Early Childhood Worker: Radha Mondragon Last DP export: 06/29/19 2:51 Patient Name: GRACE DIAS Page [id number] at 1558 All edits/amendments must be made on the electronic document DICTATION DATE: 06/29/191556 SUPERVISOR HISTOLOGY: JAYE 06/29/19 155 RPT#: [id number] DC DATE: STATUS: ADM IN [facility] [address] [place] [address] END OF REPORT
[2019-06-30] VITALS: BP 133/95
[2019-06-30 04:00] VITALS: BP 120/82
[2019-06-30 06:33] LABS: BASOPHILS 0 % (0-2); EOSINOPHILS 1.5 % (0-7); HEMATOCRIT 35.8 % (42.0-54.0); HEMOGLOBIN 11.5 g/dL (13.5-17.5); IMMATURE GRANULOCYTES 0.3 % (0-5); LYMPHOCYTES 29.3 % (15-50); MCH 29.9 pg (26.0-34.0); MCHC 32.1 g/dL (31.0-37.0); MCV 93.2 fL (80.0-100.0); MEAN PLATELET VOLUME 8.7 fL (7.4-10.4); MONOCYTES 11.4 % (2-11); NEUTROPHILS 57.5 % (40-80); PLATELET COUNT 195 10x3/uL (130-400); RBC 3.84 10x6/uL (4.20-6.10); RDW 13.5 % (11.5-14.5); WBC 3.4 10x3/uL (4.8-10.8)
[2019-06-30 06:47] LABS: INR 1.09 (0.85-1.17); PROTIME 13.6 SECONDS (11.6-15.0)
[2019-06-30 06:50] LABS: CALC OSMOLALITY 276 mosm/kg (275-300); CARBON DIOXIDE 25.5 mmol/L (21.0-32.0); CHLORIDE - SERUM 104 mmol/L (98-107); CREATININE - SERUM 0.7 mg/dL (0.6-1.3); GLUCOSE 140 mg/dL (74-106); POTASSIUM - SERUM 3.9 mmol/L (3.5-5.1); SODIUM 139 mmol/L (136-145); UREA NITROGEN 5 mg/dL (7-18); eGFR NON AFRICAN AMERICAN > 90 mL/min (90-120)
[2019-06-30 07:12] VITALS: BP 130/88
--- NOTE | 2019-06-30 08:50 | NUR ---
PT ALERT X 4. BREATH SOUNDS DIMINISHED TO RLL. TELEMETRY IN PLACE. IV TO RIGHT AC, SALINE LOCKED. PT REPORTING PAIN OF 7/10, MEDICATED PER ORDERS, WILL MONITOR. SWELLING TO LLE REDUCED, EDEMA +1, PULSE PALPABLE. FAMILY IN ROOM. BED LOW, CALL LIGHT IN REACH. NO OTHER NEEDS AT THIS TIME.
[2019-06-30 10:47] VITALS: BP 129/88
[2019-06-30 15:13] VITALS: BP 149/95
[2019-06-30 18:30] VITALS: BP 122/91
--- NOTE | 2019-06-30 19:35 | NUR ---
PATIENT RESTING IN BED WITH NO S/S OF DISTRESS AND DENIES NEEDS AT THIS TIME. BED IN LOWEST POSITION AND CALL LIGHT WITHIN REACH. ENCOURAGED THE PATIENT TO CALL IF HE HAS NEEDS. WILL CONTINUE TO MONITOR.
[2019-07-01 03:53] VITALS: BP 140/99
[2019-07-01 06:04] LABS: BASOPHILS 0.3 % (0-2); EOSINOPHILS 2.3 % (0-7); HEMATOCRIT 35.6 % (42.0-54.0); HEMOGLOBIN 11.4 g/dL (13.5-17.5); LYMPHOCYTES 36.6 % (15-50); MCH 29.7 pg (26.0-34.0); MCV 92.7 fL (80.0-100.0); MEAN PLATELET VOLUME 8.8 fL (7.4-10.4); MONOCYTES 11.9 % (2-11); NEUTROPHILS 48.9 % (40-80); PLATELET COUNT 230 10x3/uL (130-400); RBC 3.84 10x6/uL (4.20-6.10); RDW 13.3 % (11.5-14.5); WBC 3.9 10x3/uL (4.8-10.8)
[2019-07-01 06:18] LABS: INR 1.04 (0.85-1.17); PROTIME 13.1 SECONDS (11.6-15.0)
[2019-07-01 06:28] LABS: CALCIUM 8.9 mg/dL (8.5-10.1); CARBON DIOXIDE 26.1 mmol/L (21.0-32.0); CHLORIDE - SERUM 106 mmol/L (98-107); CREATININE - SERUM 0.7 mg/dL (0.6-1.3); MAGNESIUM - SERUM 2.2 mg/dL (1.8-2.4); POTASSIUM - SERUM 3.6 mmol/L (3.5-5.1); SODIUM 140 mmol/L (136-145); eGFR NON AFRICAN AMERICAN > 90 mL/min (90-120)
[2019-07-01 06:29] LABS: CALC OSMOLALITY 276 mosm/kg (275-300); GLUCOSE 74 mg/dL (74-106); UREA NITROGEN 9 mg/dL (7-18)
--- NOTE | 2019-07-01 07:31 | NUR ---
ALERT AND ORIENTED. EATING BREAKFAST. LLE SWOLLEN AND RED. BEING TREATED FOR DVT. CL IN REACH.
[2019-07-01 07:33] VITALS: BP 133/89
--- NOTE | 2019-07-01 12:21 | NUR ---
NO CHANGE IN ASSESSMENT. RESTING WO DISTRESS. CL IN REACH.
[2019-07-01 14:41] VITALS: BP 128/73
--- NOTE | 2019-07-01 15:47 | MORECARE ---
CASE MANAGEMENT DISCHARGE SUMMARY PATIENT: GRACE DIAS UNIT: [id number] ADM DATE: 06/30/19 AGE: 43 : 77 SEX: M ROOM/BED: D.1208 AUTHOR: BOBDOC PHYSICIAN: REFERRING PHYSICIAN: THU ADAME MD DATE OF SERVICE: 07/01/19 Discharge Plan Patient Name: GRACE DIAS [facility] [facility] 1975 Planned Disposition: Home Anticipated Discharge Date: 07/01/19 Discharge Date: Expected LOS: 1 Initial Reviewer: [email or web address] Initial Review Date: 06/29/2019 Generated: 07/01/19 4:47 pm DCP- Discharge Planning Updated by [email or web address]: Radha Mondragon on 06/29/19 2:[address] Patient Name: GRACE DIAS Admission Status: ER Accout number: [id number] Admission Date: 06-29-2019 : 1975 Admission Diagnosis: Attending: THU TITUS Current LOS: 1 Anticipated DC Date: Planned Disposition: Primary Insurance: UNINSURED DISCOUNT PLAN Discharge Planning Comments: CM CALLED [employer] AND LEFT A MSG TO FOLLOW UP WITH THIS PATIENT TO HELP WITH INSURANCE APPLICATION. NICK FROM [employer] [facility] MET WITH PATIENT TODAY. COUMADIN IS AVAILABLE AT [facility] FOR 4 DOLLARS THROUGH [facility]. I WILL MEET WITH PATIENT AND GIVE HIM A GOOD RX PRESCRIPTION DRUG CARD. CM WILL FOLLOW AND ASSIST NEEDED. Parking Enforcer: Radha Mondragon DCPIA - Discharge Planning Initial Assessment Updated by [id number]: Grey Neri on 07/01/19 3:44 pm * Is the patient Alert and Oriented? Yes * How many steps to enter\exit or inside your home? NONE * PCP NONE * Pharmacy [facility] ON [address] * Preadmission Environment Homeless * Other Environment LIVING IN TENT WITH GIRLFRIEND * Facility Name NONE * ADLs Independent * Equipment None * Other Equipment NO MEDICAL EQUIPMENT PROVIDER PREFERENCE * List name and contact numbers for known caregivers / representatives who currently or will assist patient after discharge: KENNEDY ZAID, FRIEND, * Verbal permission to speak to the caregivers and representatives has been obtained from the patient. N/A * Community resources currently utilized None * Please name any agencies selected above. NONE * Additional services required to return to the preadmission environment? No * Can the patient safely return to the preadmission environment? Yes * Has this patient been hospitalized within the prior 30 days at any hospital? No Last DP export: 06/29/19 2:58 Patient Name: GRACE DIAS Page [phone] at 1547 All edits/amendments must be made on the electronic document DICTATION DATE: 07/01/191546 CONFERENCE PLANNING MANAGER: JAYE 07/01/191546 RPT#: [id number] DC DATE: STATUS: ADM IN [facility] [address] [place] [address] END OF REPORT
--- NOTE | 2019-07-01 15:56 | MORECARE ---
CASE MANAGEMENT DISCHARGE SUMMARY PATIENT: GRACE DIAS UNIT: [id number] ADM DATE: 06/30/19 AGE: 43 : 79 SEX: M ROOM/BED: D.1208 AUTHOR: GRETEL ROJAS PHYSICIAN: REFERRING PHYSICIAN: THU ADAME MD DATE OF SERVICE: 07/01/19 Discharge Plan Patient Name: GRACE DIAS Facility: [facility]:[place] : 1975 Planned Disposition: Home Anticipated Discharge Date: 07/01/19 Discharge Date: Expected LOS: 1 Initial Reviewer: [email or web address] Initial Review Date: 06/29/2019 Generated: 07/01/19 4:56 pm Comments DCP- Discharge Planning Updated by [email or web address]: Grey Neri on 07/01/19 2:[address] Patient Name: GRACE DIAS Admission Status: ER Accout number: [id number] Admission Date: 06-30-2019 : 1975 Admission Diagnosis: Attending: THU TITUS Current LOS: 1 Anticipated DC Date: 07-01-2019 Planned Disposition: Home Primary Insurance: MEDICAID [place] PENDING Discharge Planning Comments: CM RECEIVED ORDER FOR MEDICATION ASSISTANCE. CM MET WITH PT IN ROOM TO DISCUSS DISCHARGE PLANNING AND NEEDS. PT REPORTS LIVING IN A TENT WITH HIS GIRLFRIEND. THE TENT IS CLOSE TO [facility]. PT IS INDEPENDENT IN HIS CARE. PT HAS NO MEDICAL EQUIPMENT AND NO OUTSIDE SERVICES ASSISTING IN THE HOME. CM DISCUSSED AVAILABILITY OF HOME HEALTH, REHAB SERVICES AND MEDICAL EQUIPMENT. PT DENIES DISCHARGE NEEDS OTHER THAN HELP WITH ELIQUIS. PT HAS APPLIED FOR STATE MEDICAID AND IS WAITING FOR APPROVAL. CM PROVIDED PT WITH ELIQUIS FREE 30 DAY PRESCRIPTION CARD AND $10 COPAY CARD. PT REPORTS HE HAS $10 AND WILL EITHER TAKE A TAXI OR BUS FOR DISCHARGE HOME. BEDSIDE NURSE NOTIFIED. PT PLANS TO DISCHARGE TO HIS TENT WITH HIS GIRLFRIEND, HE WILL TAKE TAXI OR BUS AT DISCHARGE AND HAS FUNDS FOR THIS. PT WILL NEED TWO PRESCRIPTIONS FOR ELIQUIS, ONE FOR 30 DAYS (TO USE THE FREE 30 DAY SUPPLY CARD) AND ONE FOR REFILLS ( TO USE THE $10 COPAY CARD) WITH. CM TO CONTINUE TO FOLLOW AND ASSIST IF NEEDED. Filler And Trimmer: Grey Neri DCP- Discharge Planning Updated by [email or web address]: Radhagina Mondragon on 06/29/19 2:[address] Patient Name: GRACE DIAS Admission Status: ER Accout number: [id number] Admission Date: 06-29-2019 : 1975 Admission Diagnosis: Attending: THU TITUS Current LOS: 1 Anticipated DC Date: Planned Disposition: Primary Insurance: UNINSURED DISCOUNT PLAN Discharge Planning Comments: CM CALLED [employer] AND LEFT A MSG TO FOLLOW UP WITH THIS PATIENT TO HELP WITH INSURANCE APPLICATION. NICK FROM [employer] MET WITH PATIENT TODAY. COUMADIN IS AVAILABLE AT [facility] FOR 4 DOLLARS THROUGH [facility]. I WILL MEET WITH PATIENT AND GIVE HIM A GOOD RX PRESCRIPTION DRUG CARD. CM WILL FOLLOW AND ASSIST NEEDED. Filler And Trimmer: Radha Mondragon DCPIA - Discharge Planning Initial Assessment Updated by [id number]: Grey Neri on 07/01/19 3:44 pm * Is the patient Alert and Oriented? Yes * How many steps to enter\exit or inside your home? NONE * PCP NONE * Pharmacy [facility] * Preadmission Environment Homeless * Other Environment LIVING IN TENT WITH GIRLFRIEND * Facility Name NONE * ADLs Independent * Equipment None * Other Equipment NO MEDICAL EQUIPMENT PROVIDER PREFERENCE * List name and contact numbers for known caregivers / representatives who currently or will assist patient after discharge: KENNEDY MRA, OFE, * Verbal permission to speak to the caregivers and representatives has been obtained from the patient. N/A * Community resources currently utilized None * Please name any agencies selected above. NONE * Additional services required to return to the preadmission environment? No * Can the patient safely return to the preadmission environment? Yes * Has this patient been hospitalized within the prior 30 days at any hospital? No Last DP export: 07/01/19 2:47 Patient Name: GRACE DIAS Page [id number] at 1556 All edits/amendments must be made on the electronic document DICTATION DATE: 07/01/191555 PULMONOLOGY TECHNICIAN: JAYE 07/01/191555 RPT#: [id number] DC DATE: STATUS: ADM IN [place] [address] [place] [address] END OF REPORT
--- NOTE | 2019-07-01 17:15 | NUR ---
NO CHANGE IN ASSESSMENT. DR FLORES WAS HERE. PATIENT RESTING WO C/O PAIN AT THIS TIME.
--- NOTE | 2019-07-01 19:00 | NUR ---
PATIENT AMBULATED TO VENDING MACHINE. NO S/S OF DISTRESS.
[2019-07-01 20:05] VITALS: BP 140/92
[2019-07-02 05:41] VITALS: BP 124/80
[2019-07-02 06:12] LABS: BASOPHILS 0.2 % (0-2); EOSINOPHILS 1.9 % (0-7); HEMATOCRIT 37.5 % (42.0-54.0); HEMOGLOBIN 12.2 g/dL (13.5-17.5); LYMPHOCYTES 41.8 % (15-50); MCH 29.8 pg (26.0-34.0); MCHC 32.5 g/dL (31.0-37.0); MCV 91.5 fL (80.0-100.0); MEAN PLATELET VOLUME 8.9 fL (7.4-10.4); MONOCYTES 11.9 % (2-11); NEUTROPHILS 44.2 % (40-80); PLATELET COUNT 224 10x3/uL (130-400); RDW 13.2 % (11.5-14.5); WBC 4.2 10x3/uL (4.8-10.8)
[2019-07-02 06:24] LABS: CALCIUM 9.2 mg/dL (8.5-10.1); CARBON DIOXIDE 27.1 mmol/L (21.0-32.0); CHLORIDE - SERUM 104 mmol/L (98-107); GLUCOSE 95 mg/dL (74-106); MAGNESIUM - SERUM 2.3 mg/dL (1.8-2.4); SODIUM 139 mmol/L (136-145)
[2019-07-02 06:25] LABS: CALC OSMOLALITY 278 mosm/kg (275-300); CREATININE - SERUM 0.9 mg/dL (0.6-1.3); UREA NITROGEN 14 mg/dL (7-18); eGFR NON AFRICAN AMERICAN > 90 mL/min (90-120)
[2019-07-02 06:30] LABS: INR 1.13 (0.85-1.17)
--- NOTE | 2019-07-02 07:14 | MORECARE ---
CASE MANAGEMENT DISCHARGE SUMMARY PATIENT: GRACE DIAS UNIT: [id number] ADM DATE: 06/30/19 AGE: 43 : 79 SEX: M ROOM/BED: D.1208 AUTHOR: GRETEL ROJAS PHYSICIAN: REFERRING PHYSICIAN: THU ADAME MD DATE OF SERVICE: 07/02/19 Discharge Plan Patient Name: GRACE DIAS Facility: [facility]:[place] : 1975 Planned Disposition: Home Anticipated Discharge Date: 07/01/19 Discharge Date: Expected LOS: 1 Initial Reviewer: [email or web address] Initial Review Date: 06/29/2019 Generated: 07/02/19 8:13 am Comments DCP- Discharge Planning Updated by [id number]: Grey Neri on 07/01/19 2:[address] Patient Name: GRACE DIAS Admission Status: ER Accout number: [id number] Admission Date: 06-30-2019 : 1975 Admission Diagnosis: Attending: THU TITUS Current LOS: 1 Anticipated DC Date: 07-01-2019 Planned Disposition: Home Primary Insurance: MEDICAID [place] PENDING Discharge Planning Comments: CM RECEIVED ORDER FOR MEDICATION ASSISTANCE. CM MET WITH PT IN ROOM TO DISCUSS DISCHARGE PLANNING AND NEEDS. PT REPORTS LIVING IN A TENT WITH HIS GIRLFRIEND. THE TENT IS CLOSE TO [facility]. PT IS INDEPENDENT IN HIS CARE. PT HAS NO MEDICAL EQUIPMENT AND NO OUTSIDE SERVICES ASSISTING IN THE HOME. CM DISCUSSED AVAILABILITY OF HOME HEALTH, REHAB SERVICES AND MEDICAL EQUIPMENT. PT DENIES DISCHARGE NEEDS OTHER THAN HELP WITH ELIQUIS. PT HAS APPLIED FOR STATE MEDICAID AND IS WAITING FOR APPROVAL. CM PROVIDED PT WITH ELIQUIS FREE 30 DAY PRESCRIPTION CARD AND $10 COPAY CARD. PT REPORTS HE HAS $10 AND WILL EITHER TAKE A TAXI OR BUS FOR DISCHARGE HOME. BEDSIDE NURSE NOTIFIED. PT PLANS TO DISCHARGE TO HIS TENT WITH HIS GIRLFRIEND, HE WILL TAKE TAXI OR BUS AT DISCHARGE AND HAS FUNDS FOR THIS. PT WILL NEED TWO PRESCRIPTIONS FOR ELIQUIS, ONE FOR 30 DAYS (TO USE THE FREE 30 DAY SUPPLY CARD) AND ONE FOR REFILLS ( TO USE THE $10 COPAY CARD) WITH. CM TO CONTINUE TO FOLLOW AND ASSIST IF NEEDED. Manager Clinic: Grey Neri DCP- Discharge Planning Updated by [id number]: Radhagina Mondragon on 06/29/19 2:[address] Patient Name: GRACE DIAS Admission Status: ER Accout number: [id number] Admission Date: 06-29-2019 : 1975 Admission Diagnosis: Attending: THU TITUS Current LOS: 1 Anticipated DC Date: Planned Disposition: Primary Insurance: UNINSURED DISCOUNT PLAN Discharge Planning Comments: CM CALLED [employer] AND LEFT A MSG TO FOLLOW UP WITH THIS PATIENT TO HELP WITH INSURANCE APPLICATION. NICK FROM [employer] MET WITH PATIENT TODAY. COUMADIN IS AVAILABLE AT [facility] FOR 4 DOLLARS THROUGH [facility]. I WILL MEET WITH PATIENT AND GIVE HIM A GOOD RX PRESCRIPTION DRUG CARD. CM WILL FOLLOW AND ASSIST NEEDED. Manager Clinic: Radha Mondragon DCPIA - Discharge Planning Initial Assessment Updated by [id number]: Grey Neri on 07/01/19 3:44 pm * Is the patient Alert and Oriented? Yes * How many steps to enter\exit or inside your home? NONE * PCP NONE * Pharmacy [facility] * Preadmission Environment Homeless * Other Environment LIVING IN TENT WITH GIRLFRIEND * Facility Name NONE * ADLs Independent * Equipment None * Other Equipment NO MEDICAL EQUIPMENT PROVIDER PREFERENCE * List name and contact numbers for known caregivers / representatives who currently or will assist patient after discharge: KENNEDY MAR, OFE, * Verbal permission to speak to the caregivers and representatives has been obtained from the patient. N/A * Community resources currently utilized None * Please name any agencies selected above. NONE * Additional services required to return to the preadmission environment? No * Can the patient safely return to the preadmission environment? Yes * Has this patient been hospitalized within the prior 30 days at any hospital? No Last DP export: 07/01/19 2:56 Patient Name: GRACE DIAS Page 98001 at 0714 All edits/amendments must be made on the electronic document DICTATION DATE: 07/02/19712 SLIPCOVER CUTTER: JAYE 07/02/19712 RPT#: [id number] DC DATE: STATUS: ADM IN [place] [address] [place] [address] END OF REPORT
--- NOTE | 2019-07-02 07:17 | NUR ---
ALERT AND ORIENTED. NO DISTRESS NOTED. CL IN REACH.
[2019-07-02 07:57] VITALS: BP 142/86
[2019-07-02 10:10] LABS: LUPUS - INTERPRETATION Comment: (()); LUPUS - THROMBIN TIME 18.5 sec (0.0-23.0); LUPUS - dRVVT 28.4 sec (0.0-47.0); PTT-LA 36.3 sec (0.0-51.9)
[2019-07-02 11:13] VITALS: BP 113/78
[2019-07-02] MEDS ORDERED: ELIQUIS5 MG PO (11:42)
[2019-07-02] MEDS ORDERED: LISINOPRIL10 MG PO (11:43)
--- NOTE | 2019-07-02 11:46 | NUR ---
NO DISTRESS NOTED. NO CHANGE IN ASSESSMENT. UP AMBULATING.
--- NOTE | 2019-07-02 12:56 | NUR ---
PATIENT IS DISCHARGING TODAY. DC INSTRUCTIONS GIVEN/VERBALIZES UNDERSTANDING. INSTRUCTED TO CALL FOR APPT WITH DR FLORES IN A WEEK. WAITING ON RIDE AND ALSO WAITING FOR [facility] TO GIVE HIM SCRIPT FOR FREE MEDICATION OF ELIQUIS X 1 MTH. WILL DC AFTER HE GETS SCRIPT.
--- NOTE | 2019-07-02 14:25 | NUR ---
OT NOTE: PT PERFORMING ALL ADLS AND MOBILITY INDEP. REPORTS THAT HE HAS CONTINUED PAIN, BUT NOT CURRENTLY AFFECTING HIS ADLS AND MOBILITY. PT TO BE DCD FROM [facility]. TERESITA ZAFAR, OTR/L
--- NOTE | 2019-07-03 11:15 | MORECARE ---
CASE MANAGEMENT DISCHARGE SUMMARY PATIENT: GRACE DIAS UNIT: [id number] ADM DATE: 06/30/19 AGE: 43 : 79 SEX: M ROOM/BED: D.1208 AUTHOR: GRETEL ROJAS PHYSICIAN: REFERRING PHYSICIAN: THU ADAME MD DATE OF SERVICE: 07/03/19 Discharge Plan Patient Name: GRACE DIAS Facility: [facility]:[place] : 1975 Planned Disposition: Home Anticipated Discharge Date: 07/02/19 Discharge Date: 07/02/2019 Expected LOS: 2 Initial Reviewer: [id number] Initial Review Date: 06/29/2019 Generated: 07/03/19 12:15 pm Comments DCP- Discharge Planning Updated by [id number]: Grey Neri on 07/01/19 2:[address] Patient Name: GRACE DIAS Admission Status: ER Accout number: [id number] Admission Date: 06-30-2019 : 1975 Admission Diagnosis: Attending: THU TITUS Current LOS: 1 Anticipated DC Date: 07-01-2019 Planned Disposition: Home Primary Insurance: MEDICAID [place] PENDING Discharge Planning Comments: CM RECEIVED ORDER FOR MEDICATION ASSISTANCE. CM MET WITH PT IN ROOM TO DISCUSS DISCHARGE PLANNING AND NEEDS. PT REPORTS LIVING IN A TENT WITH HIS GIRLFRIEND. THE TENT IS CLOSE TO [facility]. PT IS INDEPENDENT IN HIS CARE. PT HAS NO MEDICAL EQUIPMENT AND NO OUTSIDE SERVICES ASSISTING IN THE HOME. CM DISCUSSED AVAILABILITY OF HOME HEALTH, REHAB SERVICES AND MEDICAL EQUIPMENT. PT DENIES DISCHARGE NEEDS OTHER THAN HELP WITH ELIQUIS. PT HAS APPLIED FOR STATE MEDICAID AND IS WAITING FOR APPROVAL. CM PROVIDED PT WITH ELIQUIS FREE 30 DAY PRESCRIPTION CARD AND $10 COPAY CARD. PT REPORTS HE HAS $10 AND WILL EITHER TAKE A TAXI OR BUS FOR DISCHARGE HOME. BEDSIDE NURSE NOTIFIED. PT PLANS TO DISCHARGE TO HIS TENT WITH HIS GIRLFRIEND, HE WILL TAKE TAXI OR BUS AT DISCHARGE AND HAS FUNDS FOR THIS. PT WILL NEED TWO PRESCRIPTIONS FOR ELIQUIS, ONE FOR 30 DAYS (TO USE THE FREE 30 DAY SUPPLY CARD) AND ONE FOR REFILLS ( TO USE THE $10 COPAY CARD) WITH. CM TO CONTINUE TO FOLLOW AND ASSIST IF NEEDED. Pipe Processor: Grey Neri DCP- Discharge Planning Updated by [id number]: Radha Alanna on 06/29/19 2:[address] Patient Name: GRACE DIAS Admission Status: ER Accout number: [id number] Admission Date: 06-29-2019 : 1975 Admission Diagnosis: Attending: THU TITUS Current LOS: 1 Anticipated DC Date: Planned Disposition: Primary Insurance: UNINSURED DISCOUNT PLAN Discharge Planning Comments: CM CALLED [employer] AND LEFT A MSG TO FOLLOW UP WITH THIS PATIENT TO HELP WITH INSURANCE APPLICATION. NICK FROM [employer] MET WITH PATIENT TODAY. COUMADIN IS AVAILABLE AT [facility] FOR 4 DOLLARS THROUGH GOOD RX. I WILL MEET WITH PATIENT AND GIVE HIM A GOOD RX PRESCRIPTION DRUG CARD. CM WILL FOLLOW AND ASSIST NEEDED. Pipe Processor: Radha Mondragon DCPIA - Discharge Planning Initial Assessment Updated by [id number]: Grey Neri on 07/01/19 3:44 pm * Is the patient Alert and Oriented? Yes * How many steps to enter\exit or inside your home? NONE * PCP NONE * Pharmacy [facility] ON [address] * Preadmission Environment Homeless * Other Environment LIVING IN TENT WITH GIRLFRIEND * Facility Name NONE * ADLs Independent * Equipment None * Other Equipment NO MEDICAL EQUIPMENT PROVIDER PREFERENCE * List name and contact numbers for known caregivers / representatives who currently or will assist patient after discharge: KENNEDY MAR, FRIEND, * Verbal permission to speak to the caregivers and representatives has been obtained from the patient. N/A * Community resources currently utilized None * Please name any agencies selected above. NONE * Additional services required to return to the preadmission environment? No * Can the patient safely return to the preadmission environment? Yes * Has this patient been hospitalized within the prior 30 days at any hospital? No Last DP export: 07/02/19 6:14 Patient Name: GRACE DIAS Page 30055 at 1115 All edits/amendments must be made on the electronic document DICTATION DATE: 07/03/19 1115 YARN DYER: JAYE 07/03/19 1115 RPT#: [id number] DC DATE:07/02/19 STATUS: DIS IN [place] [address] [place] [address] END OF REPORT
== END 2019-07-02 15:15 | disposition home or self-care (01) | DRG 300 ==
LOC: D.ER 21:59 → D.M3 06-29 00:43 → OBSVTIME 06-29 00:43 → D.M3 06-30 11:44
PROVIDERS: Family Medicine; Internal Medicine Hematology & Oncology; ADMIT Family Medicine Adult Medicine; ATTEND Family Medicine Adult Medicine
DX: I82.412 Acute embolism and thrombosis of left femoral vein (principal); D68.51 Activated protein C resistance; I10 Essential (primary) hypertension; D64.9 Anemia, unspecified; Z79.01 Long term (current) use of anticoagulants; Z86.718 Personal history of other venous thrombosis and embolism

== ENCOUNTER 2019-07-16 08:03 | Inpatient (IN) | payer MEDICAID ==
[~2019-07-16] VITALS: Ht 182.9 cm; Wt 81.8 kg
[~2019-07-16 08:03] MED LIST changes: +ELIQUIS5 MG PO; +LISINOPRIL10 MG PO
[2019-07-16 08:25] LABS: BASOPHILS 0.2 % (0-2); EOSINOPHILS 0.6 % (0-7); HEMATOCRIT 38.8 % (42.0-54.0); IMMATURE GRANULOCYTES 0.2 % (0-5); LYMPHOCYTES 17.5 % (15-50); MCH 30.8 pg (26.0-34.0); MCHC 33.5 g/dL (31.0-37.0); MCV 91.9 fL (80.0-100.0); MEAN PLATELET VOLUME 10.4 fL (7.4-10.4); NEUTROPHILS 70.5 % (40-80); PLATELET COUNT 268 10x3/uL (130-400); RBC 4.22 10x6/uL (4.20-6.10); RDW 12.9 % (11.5-14.5); WBC 8.1 10x3/uL (4.8-10.8)
[2019-07-16 08:33] LABS: APTT 26.4 SECONDS (22.8-39.4); INR 1.09 (0.85-1.17); PROTIME 13.6 SECONDS (11.6-15.0)
[2019-07-16 08:34] LABS: D-DIMER-QUANTITATIVE 2.87 ug/mLFEU (0.20-0.54)
[2019-07-16 08:52] LABS: CALC OSMOLALITY 274 mosm/kg (275-300); CALCIUM 9.7 mg/dL (8.5-10.1); CARBON DIOXIDE 31.3 mmol/L (21.0-32.0); CHLORIDE - SERUM 100 mmol/L (98-107); CREATININE - SERUM 0.9 mg/dL (0.6-1.3); GLUCOSE 86 mg/dL (74-106); SODIUM 137 mmol/L (136-145); UREA NITROGEN 19 mg/dL (7-18); eGFR NON AFRICAN AMERICAN > 90 mL/min (90-120)
[2019-07-16 08:58] LABS: ALBUMIN 3.9 g/dL (3.4-5.0); ALKALINE PHOSPHATASE 102 U/L (46-116); ALT (SGPT) 23 U/L (10-68); BILIRUBIN - TOTAL 0.71 mg/dL (0.2-1.3); PROTEIN - SERUM 8.8 g/dL (6.4-8.2)
[2019-07-16 09:50] VITALS: BP 137/96
--- NOTE | 2019-07-16 09:54 | NUR ---
RECEIVED PT FROM ER. PT IS AAO AND UP AD HYACINTH. RR EVEN AND UNLABORED ON RA. VSS AND WNL. QUICKSTART, MED REQ, AND HISTORY COMPLETE. PT REPORTS OF PAIN IN LEFT LEG LEVEL 6/10 AT THIS TIME. INSTRUCTED PT ON MEDICATON TIMES. PT DENIES ANY NEEDS AT THIS TIME. CALL LIGHT W/I REACH. NO S/S OF DISTRESS NOTED. WILL CTM.
[2019-07-16 09:57] VITALS: BP 137/96; Ht 182.9 cm; Wt 81.8 kg
[2019-07-16 16:22] VITALS: BP 104/68
--- NOTE | 2019-07-16 19:21 | NUR ---
PATIENT SITTING UP IN BED WATCHING TV.CL IN REACH. DENIES NEEDS AT THIS TIME. BED IN LOW SIDE RAILS X2. A/O X4. LUNGS CLEAR. BOWEL ACTIVE X4. RESP EVEN AND UNLABORED. WILL CONTINUE TO MONITOR.
[2019-07-16 19:45] VITALS: BP 98/70
[2019-07-17 00:12] VITALS: BP 94/68
--- NOTE | 2019-07-17 01:12 | NUR ---
I have reviewed this patient and I concur with the Shift Assessment completed by the Licensed Practical Nurse today this shift.
[2019-07-17 04:36] VITALS: BP 110/76
[2019-07-17 06:32] LABS: BASOPHILS 0.2 % (0-2); EOSINOPHILS 1.6 % (0-7); HEMATOCRIT 37.4 % (42.0-54.0); HEMOGLOBIN 12.2 g/dL (13.5-17.5); IMMATURE GRANULOCYTES 0.2 % (0-5); LYMPHOCYTES 29.9 % (15-50); MCH 30.2 pg (26.0-34.0); MCHC 32.6 g/dL (31.0-37.0); MCV 92.6 fL (80.0-100.0); MEAN PLATELET VOLUME 9.4 fL (7.4-10.4); MONOCYTES 15.7 % (2-11); NEUTROPHILS 52.4 % (40-80); RBC 4.04 10x6/uL (4.20-6.10); RDW 12.6 % (11.5-14.5)
[2019-07-17 06:41] LABS: PLATELET COUNT 187 10x3/uL (130-400); WBC 5.1 10x3/uL (4.8-10.8)
[2019-07-17 06:49] LABS: INR 1.11 (0.85-1.17); PROTIME 14.3 SECONDS (11.6-15.0)
[2019-07-17 07:13] LABS: ALBUMIN 3.1 g/dL (3.4-5.0); ALKALINE PHOSPHATASE 82 U/L (46-116); ALT (SGPT) 19 U/L (10-68); BILIRUBIN - TOTAL 0.33 mg/dL (0.2-1.3); CALC OSMOLALITY 279 mosm/kg (275-300); CHLORIDE - SERUM 104 mmol/L (98-107); CREATININE - SERUM 0.8 mg/dL (0.6-1.3); GLUCOSE 105 mg/dL (74-106); POTASSIUM - SERUM 3.7 mmol/L (3.5-5.1); PROTEIN - SERUM 6.7 g/dL (6.4-8.2); SODIUM 140 mmol/L (136-145); UREA NITROGEN 16 mg/dL (7-18); eGFR NON AFRICAN AMERICAN > 90 mL/min (90-120)
[2019-07-17 07:38] VITALS: BP 104/74
--- NOTE | 2019-07-17 09:24 | NUR ---
ALERT AND ORIENTED. NO C/O PAIN AT THIS TIME. RESP EVEN AND UNLABORED. CL IN REACH.
--- NOTE | 2019-07-17 11:23 | NUR ---
ADMITTED AT THIS TIME FROM ER. ALERT AND OREINTED. FRIEND IS WITH HER.
--- NOTE | 2019-07-17 13:24 | NUR ---
NO CHANGE IN ASSESSMENT. RESTING WO DISTRESS. CL IN REACH.
[2019-07-17 15:24] VITALS: BP 95/60
--- NOTE | 2019-07-17 15:52 | NUR ---
NO CHANGE IN ASSESSMENT. WO C/O PAIN AT THIS TIME. RESP EVEN AND UNLABORED. CL IN REACH.
--- NOTE | 2019-07-17 16:30 | MORECARE ---
CASE MANAGEMENT DISCHARGE SUMMARY PATIENT: GRACE DIAS UNIT: [id number] ADM DATE: 07/16/19 AGE: 44 : 79 SEX: M ROOM/BED: D.1209 AUTHOR: GRETEL ROJAS PHYSICIAN: REFERRING PHYSICIAN: TACHO MORA MD DATE OF SERVICE: 07/17/19 Discharge Plan Patient Name: GRACE DIAS [facility] [facility] 1975 Planned Disposition: Home Anticipated Discharge Date: Discharge Date: Expected LOS: Initial Reviewer: [email or web address] Initial Review Date: 07/17/2019 Generated: 07/17/19 5:29 pm Patient Name: GRACE DIAS Page [phone] at 1630 All edits/amendments must be made on the electronic document DICTATION DATE: 07/17/191628 BAND MANAGER: JAYE 07/17/191628 RPT#: [id number] DC DATE: STATUS: ADM IN [facility] [address] [place] [address] END OF REPORT
--- NOTE | 2019-07-17 16:41 | MORECARE ---
CASE MANAGEMENT DISCHARGE SUMMARY PATIENT: GRACE DIAS UNIT: [id number] ADM DATE: 07/16/19 AGE: 44 : 79 SEX: M ROOM/BED: D.1209 AUTHOR: GRETEL ROJAS PHYSICIAN: REFERRING PHYSICIAN: TACHO MORA MD DATE OF SERVICE: 07/17/19 Discharge Plan Patient Name: GRACE DIAS Facility: [facility]:[place] : 1975 Planned Disposition: Home Anticipated Discharge Date: Discharge Date: Expected LOS: Initial Reviewer: [email or web address] Initial Review Date: 07/17/2019 Generated: 07/17/19 5:40 pm Comments DCP- Discharge Planning Updated by [email or web address]: Radha Mondragon on 07/17/19 3:[address] Patient Name: GRACE DIAS Admission Status: ER Accout number: [id number] Admission Date: 07-16-2019 : 1975 Admission Diagnosis: Attending: TACHO HAY Current LOS: 1 Anticipated DC Date: Planned Disposition: Home Primary Insurance: MEDICAID [place] PENDING Discharge Planning Comments: CM MET WITH PATIENT AFTER OBTAINING VERBAL CONSENT. STATES PLANS TO DISCHARGE TO HOME. DISCUSSED NEED FOR HH, REHAB OR EQUIPMENT, PATIENT STATES HE WAS JUST HERE SEVERAL WEEKS AGO AND WE GAVE HIM A CARD FOR FREE ELIQUIS BUT SAID THE CARD WAS NOT GOOD. HE IS BACK WITH SAME COMPLAINT OF DVT LEFT LEG. WE WILL NEED TO REASSESS HIS DC MED NEEDS AT TIME OF DISCHARGE. HE STATES HAS CAROLE BUT I'M SHOWING CAROLE PENDING. CM WILL FOLLOW AND ASSIST NEEDED. Campground Hand: Radha Mondragon DCPIA - Discharge Planning Initial Assessment Updated by [email or web address]: Radha Mondragon on 07/17/19 4:31 pm * Is the patient Alert and Oriented? Yes * PCP FLORES * Pharmacy [facility] * ADLs Independent * Additional services required to return to the preadmission environment? No * Can the patient safely return to the preadmission environment? Yes * Has this patient been hospitalized within the prior 30 days at any hospital? Yes Last DP export: 07/17/19 3:30 Patient Name: GRACE DIAS Page [id number] at 1641 All edits/amendments must be made on the electronic document DICTATION DATE: 07/17/19 1640 NAVIGATION TEACHER: JAYE 07/17/19 1640 RPT#: [id number] DC DATE: STATUS: ADM IN [facility] [address] [place] [address] END OF REPORT
--- NOTE | 2019-07-17 18:12 | NUR ---
NO CHANGE IN ASSESSMENT. RESP EVEN AND UNLABORED. NO DISTRESS NOTED.
[2019-07-17 19:27] VITALS: BP 107/73
--- NOTE | 2019-07-17 19:27 | NUR ---
PATIENT RESTING IN BED WITH GUEST AT BEDSIDE AND NO S/S OF DISTRESS. BED IN LOWEST POSITION AND CALL LIGHT WITHIN REACH. ENCOURAGED THE PATIENT TO CALL IF HE HAS NEEDS. WILL CONTINUE TO MONITOR.
--- NOTE | 2019-07-17 21:06 | NUR ---
PATIENT RESTING IN BED WITH NO S/S OF DISTRESS. ADMINISTERED MEDS PER ORDERS. PATIENT DENIES OTHER NEEDS. WILL CONTINUE TO MONITOR.
[2019-07-18 03:23] VITALS: BP 106/72
[2019-07-18 05:36] LABS: BASOPHILS 0.6 % (0-2); EOSINOPHILS 2.2 % (0-7); HEMOGLOBIN 11.5 g/dL (13.5-17.5); IMMATURE GRANULOCYTES 0.2 % (0-5); LYMPHOCYTES 42.6 % (15-50); MCH 29.9 pg (26.0-34.0); MCHC 32.9 g/dL (31.0-37.0); MCV 90.9 fL (80.0-100.0); MEAN PLATELET VOLUME 9.2 fL (7.4-10.4); MONOCYTES 12.4 % (2-11); PLATELET COUNT 206 10x3/uL (130-400); RBC 3.85 10x6/uL (4.20-6.10); RDW 12.5 % (11.5-14.5); WBC 4.9 10x3/uL (4.8-10.8)
[2019-07-18 05:53] LABS: PROTIME 16.8 SECONDS (11.6-15.0)
[2019-07-18 06:00] LABS: INR 1.42 (0.85-1.17)
[2019-07-18 06:06] LABS: ALBUMIN 2.9 g/dL (3.4-5.0); ALKALINE PHOSPHATASE 81 U/L (46-116); ALT (SGPT) 18 U/L (10-68); BILIRUBIN - TOTAL 0.24 mg/dL (0.2-1.3); CALC OSMOLALITY 279 mosm/kg (275-300); CALCIUM 8.9 mg/dL (8.5-10.1); CARBON DIOXIDE 28.7 mmol/L (21.0-32.0); CHLORIDE - SERUM 105 mmol/L (98-107); CREATININE - SERUM 0.8 mg/dL (0.6-1.3); GLUCOSE 80 mg/dL (74-106); PROTEIN - SERUM 6.9 g/dL (6.4-8.2); SODIUM 140 mmol/L (136-145); UREA NITROGEN 17 mg/dL (7-18); eGFR NON AFRICAN AMERICAN > 90 mL/min (90-120)
[2019-07-18 06:08] LABS: POTASSIUM - SERUM 4.3 mmol/L (3.5-5.1)
[2019-07-18 07:00] VITALS: BP 107/78
--- NOTE | 2019-07-18 07:15 | NUR ---
REPORT RECEIVED. PT ALERT AND ORIENTED. SITTING UP IN BED. IV TO RIGHT AC SALINE LOCKED. PT HAS DVT TO LEFT UPPER LEG. REDDENED AND FIRM. ON LOVENOX. VSS. COMPLAINS OF PAIN. VSS. NO OTHER NEEDS AT THIS TIME. WILL CONTINUE TO MONITOR.
--- NOTE | 2019-07-18 09:00 | NUR ---
MORPHINE GIVEN WITH AM MEDS FOR PAIN IN LEFT LEG. NO OTHER COMPLAINTS OR NEEDS AT THIS TIME. WILL CONTINUE TO MONITOR.
[2019-07-18 11:00] VITALS: BP 127/77
--- NOTE | 2019-07-18 11:00 | NUR ---
PT SITTING UP IN BED WATCHING TV. STATES HIS LEG CONTINUES TO HURT. VSS. WILL CONTINUE TO MONITOR.
--- NOTE | 2019-07-18 13:03 | NUR ---
PAIN MEDICATION GIVEN PER REQUEST. NO OTHER NEEDS AT THIS TIME. WILL CONTINUE TO MONITOR.
[2019-07-18 15:00] VITALS: BP 109/74
--- NOTE | 2019-07-18 15:18 | NUR ---
PT RESTING QUIETLY. NO COMPLAINTS OR NEEDS AT THIS TIME. WILL CONTINUE TO MONITOR.
--- NOTE | 2019-07-18 17:30 | NUR ---
PAIN MEDICATION GIVEN FOR LEFT LEG PER REQUEST. NO OTHER NEEDS AT THIS TIME.
[2019-07-18 20:00] VITALS: BP 124/70
[2019-07-19] VITALS: BP 98/58
[2019-07-19 04:00] VITALS: BP 90/52
[2019-07-19 06:30] LABS: ALKALINE PHOSPHATASE 83 U/L (46-116); ALT (SGPT) 22 U/L (10-68); BILIRUBIN - TOTAL 0.19 mg/dL (0.2-1.3); CALC OSMOLALITY 282 mosm/kg (275-300); CARBON DIOXIDE 28.5 mmol/L (21.0-32.0); CHLORIDE - SERUM 106 mmol/L (98-107); CREATININE - SERUM 0.9 mg/dL (0.6-1.3); GLUCOSE 94 mg/dL (74-106); PROTEIN - SERUM 7.1 g/dL (6.4-8.2); SODIUM 141 mmol/L (136-145); UREA NITROGEN 19 mg/dL (7-18); eGFR NON AFRICAN AMERICAN > 90 mL/min (90-120)
[2019-07-19 06:38] LABS: INR 1.69 (0.85-1.17); PROTIME 19.3 SECONDS (11.6-15.0)
[2019-07-19 06:41] LABS: POTASSIUM - SERUM 3.6 mmol/L (3.5-5.1)
[2019-07-19 07:12] LABS: BASOPHILS 0.3 % (0-2); EOSINOPHILS 1.9 % (0-7); HEMATOCRIT 35.5 % (42.0-54.0); HEMOGLOBIN 11.7 g/dL (13.5-17.5); IMMATURE GRANULOCYTES 0.2 % (0-5); LYMPHOCYTES 39.3 % (15-50); MCH 29.9 pg (26.0-34.0); MCV 90.8 fL (80.0-100.0); MEAN PLATELET VOLUME 9.2 fL (7.4-10.4); NEUTROPHILS 47.3 % (40-80); PLATELET COUNT 238 10x3/uL (130-400); RBC 3.91 10x6/uL (4.20-6.10); RDW 12.4 % (11.5-14.5)
[2019-07-19 07:14] LABS: WBC 6.3 10x3/uL (4.8-10.8)
[2019-07-19 10:47] VITALS: BP 110/76
--- NOTE | 2019-07-19 17:17 | MORECARE ---
CASE MANAGEMENT DISCHARGE SUMMARY PATIENT: GRACE DIAS UNIT: [id number] ADM DATE: 07/16/19 AGE: 44 : 79 SEX: M ROOM/BED: D.1209 AUTHOR: GRETEL ROJAS PHYSICIAN: REFERRING PHYSICIAN: TACHO MORA MD DATE OF SERVICE: 07/19/19 Discharge Plan Patient Name: GRACE DIAS Facility: [facility]:[place] : 1975 Planned Disposition: Home Anticipated Discharge Date: Discharge Date: Expected LOS: Initial Reviewer: [email or web address] Initial Review Date: 07/17/2019 Generated: 07/19/19 6:17 pm Comments DCP- Discharge Planning Updated by [id number]: Jazmin Thakkar on 07/19/19 4:[address] CM contacted [facility] for a HOME INR MACHINE. Per [facility] brand representative, Medicaid does not cover this piece of equipment. Patient is MEDICAID PENDING. DCP- Discharge Planning Updated by [email or web address]: Radha Mondragon on 07/17/19 3:[address] Patient Name: GRACE DIAS Admission Status: ER Accout number: [id number] Admission Date: 07-16-2019 : 1975 Admission Diagnosis: Attending: TACHO HAY Current LOS: 1 Anticipated DC Date: Planned Disposition: Home Primary Insurance: MEDICAID [place] PENDING Discharge Planning Comments: CM MET WITH PATIENT AFTER OBTAINING VERBAL CONSENT. STATES PLANS TO DISCHARGE TO HOME. DISCUSSED NEED FOR HH, REHAB OR EQUIPMENT, PATIENT STATES HE WAS JUST HERE SEVERAL WEEKS AGO AND WE GAVE HIM A CARD FOR FREE ELIQUIS BUT SAID THE CARD WAS NOT GOOD. HE IS BACK WITH SAME COMPLAINT OF DVT LEFT LEG. WE WILL NEED TO REASSESS HIS DC MED NEEDS AT TIME OF DISCHARGE. HE STATES HAS CAROLE BUT I'M SHOWING CAROLE PENDING. CM WILL FOLLOW AND ASSIST NEEDED. Manager Hris: Radha Mondragon DCPIA - Discharge Planning Initial Assessment Updated by [email or web address]: Radha Mondragon on 07/17/19 4:31 pm * Is the patient Alert and Oriented? Yes * PCP FLORES * Pharmacy [facility] * ADLs Independent * Additional services required to return to the preadmission environment? No * Can the patient safely return to the preadmission environment? Yes * Has this patient been hospitalized within the prior 30 days at any hospital? Yes Last DP export: 07/17/19 3:41 Patient Name: GRACE DIAS Page 19091 at 1717 All edits/amendments must be made on the electronic document DICTATION DATE: 07/19/191716 DELIVERY AGENT: JAYE 07/19/191716 RPT#: [id number] DC DATE: STATUS: ADM IN [facility] [address] [place] [address] END OF REPORT
--- NOTE | 2019-07-19 17:30 | NUR ---
RECEIVED TO ROOM 2206 VIA FROM [employer] [facility]. A/O X3. C/O PAIN TO LEFT LEG. WILL MONITOR. FAMILY AT BEDSIDE.
[2019-07-19 20:00] VITALS: BP 118/80
--- NOTE | 2019-07-19 20:00 | NUR ---
A/O WITH NO SIGNS OF DISTRESS. IV TO THE RT AC WITH NO REDNESS OR SWELLING. REQUESTS SOMETHING FOR PAIN. SIGNIFICANT OTHER AT BEDSIDE. DENIES NO OTHER NEEDS AT THIS TIME. CONTINUE PLAN OF CARE.
[2019-07-19 23:57] VITALS: BP 124/68
[2019-07-20 04:00] VITALS: BP 104/66
[2019-07-20 04:51] LABS: BASOPHILS 0.5 % (0-2); EOSINOPHILS 1.8 % (0-7); HEMATOCRIT 36.4 % (42.0-54.0); HEMOGLOBIN 12.1 g/dL (13.5-17.5); LYMPHOCYTES 39.2 % (15-50); MCH 29.8 pg (26.0-34.0); MCHC 33.2 g/dL (31.0-37.0); MCV 89.7 fL (80.0-100.0); MONOCYTES 9.2 % (2-11); NEUTROPHILS 49.3 % (40-80); PLATELET COUNT 233 10x3/uL (130-400); RBC 4.06 10x6/uL (4.20-6.10); RDW 12.4 % (11.5-14.5); WBC 6.6 10x3/uL (4.8-10.8)
[2019-07-20 05:19] LABS: INR 2.36 (0.85-1.17); PROTIME 25.1 SECONDS (11.6-15.0)
[2019-07-20 05:22] LABS: ALBUMIN 3.3 g/dL (3.4-5.0); ALKALINE PHOSPHATASE 88 U/L (46-116); ALT (SGPT) 21 U/L (10-68); BILIRUBIN - TOTAL 0.15 mg/dL (0.2-1.3); CALC OSMOLALITY 280 mosm/kg (275-300); CALCIUM 9.1 mg/dL (8.5-10.1); CARBON DIOXIDE 26.6 mmol/L (21.0-32.0); CHLORIDE - SERUM 106 mmol/L (98-107); CREATININE - SERUM 0.7 mg/dL (0.6-1.3); GLUCOSE 97 mg/dL (74-106); POTASSIUM - SERUM 3.7 mmol/L (3.5-5.1); PROTEIN - SERUM 7.2 g/dL (6.4-8.2); SODIUM 141 mmol/L (136-145); UREA NITROGEN 13 mg/dL (7-18); eGFR NON AFRICAN AMERICAN > 90 mL/min (90-120)
--- NOTE | 2019-07-20 07:45 | NUR ---
PT RESTING IN BED WITH EYES CLOSED. AROUSES WITH NAME CALLED. PT DENIES PAIN AT THIS TIME. RESP EVEN AND UNLABORED. SALINE LOC TO RIGHT AC INTACT. SITE WITHOUT REDNESS OR EDEMA. DENIES FURTHER NEEDS AT THIS TIME. CL WITHIN REACH. ENCOURAGED TO CALL WITH NEEDS. CONTINUE POC
[2019-07-20 07:49] VITALS: BP 95/66
[2019-07-20] MEDS ORDERED: HYDROCODON-ACE1 EA10 PO (14:42)
[2019-07-20] MEDS ORDERED: COUMADIN10 MG PO (14:42)
--- NOTE | 2019-07-21 14:01 | MORECARE ---
CASE MANAGEMENT DISCHARGE SUMMARY PATIENT: GRACE DIAS UNIT: [id number] ADM DATE: 07/16/19 AGE: 44 : 79 SEX: M ROOM/BED: D.2206 AUTHOR: GRETEL ROJAS PHYSICIAN: REFERRING PHYSICIAN: TACHO MORA MD DATE OF SERVICE: 07/21/19 Discharge Plan Patient Name: GRACE DIAS Facility: [facility]:[place] : 1975 Planned Disposition: Home Anticipated Discharge Date: Discharge Date: 07/20/2019 Expected LOS: Initial Reviewer: [email or web address] Initial Review Date: 07/17/2019 Generated: 07/21/19 3:00 pm DCP- Discharge Planning Updated by [email or web address]: Jazmin Thakkar on 07/19/19 4:[address] CM contacted [facility] for a HOME INR MACHINE. Per [facility] independent sales representative, Medicaid does not cover this piece of equipment. Patient is MEDICAID PENDING. DCP- Discharge Planning Updated by [email or web address]: Radha Mondragon on 07/17/19 3:[address] Patient Name: GRACE DIAS Admission Status: ER Accout number: [id number] Admission Date: 07-16-2019 : 1975 Admission Diagnosis: Attending: TACHO HAY Current LOS: 1 Anticipated DC Date: Planned Disposition: Home Primary Insurance: MEDICAID [place] PENDING Discharge Planning Comments: CM MET WITH PATIENT AFTER OBTAINING VERBAL CONSENT. STATES PLANS TO DISCHARGE TO HOME. DISCUSSED NEED FOR HH, REHAB OR EQUIPMENT, PATIENT STATES HE WAS JUST HERE SEVERAL WEEKS AGO AND WE GAVE HIM A CARD FOR FREE ELIQUIS BUT SAID THE CARD WAS NOT GOOD. HE IS BACK WITH SAME COMPLAINT OF DVT LEFT LEG. WE WILL NEED TO REASSESS HIS DC MED NEEDS AT TIME OF DISCHARGE. HE STATES HAS CAROLE BUT I'M SHOWING CAROLE PENDING. CM WILL FOLLOW AND ASSIST NEEDED. Nuclear Waste Management Engineer: Radha Mondragon DCPIA - Discharge Planning Initial Assessment Updated by [email or web address]: Radha Mondragon on 07/17/19 4:31 pm * Is the patient Alert and Oriented? Yes * PCP FLORES * Pharmacy [facility] * ADLs Independent * Additional services required to return to the preadmission environment? No * Can the patient safely return to the preadmission environment? Yes * Has this patient been hospitalized within the prior 30 days at any hospital? Yes Last DP export: 07/19/19 4:17 Patient Name: GRACE DIAS Page 36719 at 1401 All edits/amendments must be made on the electronic document DICTATION DATE: 07/21/19 1400 GEAR AND SPLINE GRINDER: JAYE 07/21/19 1400 RPT#: [id number] DC DATE:07/20/19 STATUS: DIS IN [facility] [address] [place] [address] END OF REPORT
== END 2019-07-20 15:44 | disposition home or self-care (01) | DRG 300 ==
LOC: D.ER 08:03 → D.M3 08:21 → D.MS 07-19 17:36
PROVIDERS: Family Medicine; ADMIT Family Medicine; ATTEND Family Medicine
DX: I82.402 Acute embolism and thrombosis of unspecified deep veins of left lower extremity (principal); D68.2 Hereditary deficiency of other clotting factors; L03.116 Cellulitis of left lower limb; I10 Essential (primary) hypertension; Z72.0 Tobacco use

== ENCOUNTER 2019-09-02 21:17 | Emergency (ER) | payer SELFPAY ==
[~2019-09-02] VITALS: Ht 182.9 cm; Wt 79.5 kg
[~2019-09-02 21:17] MED LIST changes: +COUMADIN10 MG PO; +HYDROCODON-ACE1 EA10 PO
[2019-09-02 21:24] VITALS: Ht 182.9 cm; Wt 79.5 kg
[2019-09-02] MEDS ORDERED: VALIUM10 MG PO (21:27)
[2019-09-02] MEDS ORDERED: TOPROL XL25 MG PO (21:27)
[2019-09-02] MEDS ORDERED: DEPAKOTE125 MG PO (21:28)
[2019-09-02 22:46] LABS: APPEARANCE CLEAR (CLEAR); BILIRUBIN NEGATIVE (NEGATIVE); COLOR YELLOW (YELLOW); GLUCOSE NEGATIVE (NEGATIVE); KETONE NEGATIVE (NEGATIVE); NITRITE NEGATIVE (NEGATIVE); PROTEIN NEGATIVE (NEGATIVE); SPECIFIC GRAVITY 1.015 (1.005-1.020); UROBILINOGEN NORMAL (NORMAL)
[2019-09-02 23:15] LABS: BASOPHILS 0.4 % (0-2); EOSINOPHILS 1.5 % (0-7); HEMATOCRIT 37.2 % (42.0-54.0); IMMATURE GRANULOCYTES 0.2 % (0-5); LYMPHOCYTES 46.3 % (15-50); MCH 29.5 pg (26.0-34.0); MCHC 32.3 g/dL (31.0-37.0); MCV 91.4 fL (80.0-100.0); MEAN PLATELET VOLUME 9.3 fL (7.4-10.4); MONOCYTES 9.1 % (2-11); NEUTROPHILS 42.5 % (40-80); PLATELET COUNT 190 10x3/uL (130-400); RBC 4.07 10x6/uL (4.20-6.10); RDW 13.4 % (11.5-14.5); WBC 4.8 10x3/uL (4.8-10.8)
[2019-09-02 23:27] LABS: CALC OSMOLALITY 266 mosm/kg (275-300); CALCIUM 8.9 mg/dL (8.5-10.1); CARBON DIOXIDE 32.8 mmol/L (21.0-32.0); CHLORIDE - SERUM 102 mmol/L (98-107); GLUCOSE 94 mg/dL (74-106); SODIUM 132 mmol/L (136-145); UREA NITROGEN 18 mg/dL (7-18); eGFR NON AFRICAN AMERICAN 87 mL/min (90-120)
[2019-09-02 23:42] LABS: ALBUMIN 3.7 g/dL (3.4-5.0); ALKALINE PHOSPHATASE 99 U/L (30-120); ALT (SGPT) 22 U/L (10-68); BILIRUBIN - TOTAL 0.25 mg/dL (0.2-1.3); PROTEIN - SERUM 7.3 g/dL (6.4-8.2)
[2019-09-03] MEDS ORDERED: ULTRAM50 MG PO (01:47)
[2019-09-03 02:59] VITALS: BP 140/97
== END 2019-09-03 02:38 | disposition home or self-care (01) ==
LOC: D.ER 21:17
PROVIDERS: Family Medicine
DX: A64 Unspecified sexually transmitted disease (principal); R30.0 Dysuria; K40.90 Unilateral inguinal hernia, without obstruction or gangrene, not specified as recurrent; I10 Essential (primary) hypertension; Z72.0 Tobacco use